=== PATIENT | female | born 1970 | race Caucasian/White ===

== ENCOUNTER 2017-06-24 13:38 | Emergency (ER) | payer SELFPAY ==
[~2017-06-24] VITALS: Ht 162.6 cm; Wt 107.7 kg
[~2017-06-24 13:38] MED LIST: NAPROSYN500 MG PO; NO
[2017-06-24 15:34] LABS: HEMATOCRIT 45.5 % (37.0-47.0); HEMOGLOBIN 15.5 g/dl (12.0-16.0); IMMATURE GRANULOCYTES 0.3 % (0.0-1.0); MEAN CELL VOLUME 85.7 fL CALC (80.0-100.0); MEAN CORPUSCULAR HGB 29.2 pG CALC (26.0-32.0); MEAN CORPUSCULAR HGB CONC 34.1 g/L CALC (32.0-36.0); NEUT# 6.54 thou/uL (2.00-7.15); RED BLOOD COUNT 5.31 mill/uL (4.20-5.60); RED CELL DISTRI WIDTH 11.9 % (11.5-15.5)
[2017-06-24] MEDS ORDERED: METFORMIN500 MG PO (15:41)
[2017-06-24] MEDS ORDERED: METFORMIN HCL1000 MG PO (15:44)
[2017-06-24] MEDS ORDERED: INSULIN (15:45)
[2017-06-24] MEDS ORDERED: BACTRIM DS1 TAB PO ×2 (15:47→16:14)
[2017-06-24 15:53] LABS: ALBUMIN 4.4 g/dL (3.2-5.0); ALKALINE PHOSPHATASE 123 u/l (38-126); ANION GAP 20 (6-22 (CALC)); BILIRUBIN, TOTAL 1.6 mg/dL (0.0-1.4); BUN 15 mg/dL (7-17); BUN/CREATININE RATIO 24 (12-20 (CALC)); CARBON DIOXIDE 26 mmol/l (22-30); CHLORIDE 98 mmol/l (95-108); CREATININE 0.6 mg/dL (0.5-1.0); GFR > 60 ML/MIN (>=60 (CALC)); GFR FOR AFR.AMER. > 60 ML/MIN (>=60 (CALC)); POTASSIUM 4.8 mmol/l (3.5-5.1); SGOT/AST 21 u/l (14-36); SGPT/ALT 31 u/l (9-52); SODIUM 139 mmol/l (137-146); TOTAL PROTEIN 7.8 g/dL (6.3-8.2)
[2017-06-24] MEDS ORDERED: ULTRAM50 M1 PO (16:14)
[2017-06-24] MEDS ORDERED: CEPHALEXIN500 MG PO (16:14)
[2017-06-24 17:10] VITALS: BP 135/89
== END 2017-06-24 17:10 | disposition home or self-care (01) | DRG 603 ==
LOC: ED 13:38
PROVIDERS: Emergency Medicine
DX: L03.116 Cellulitis of left lower limb (principal); S91.332A Puncture wound without foreign body, left foot, initial encounter; E11.9 Type 2 diabetes mellitus without complications; B96.89 Other specified bacterial agents as the cause of diseases classified elsewhere; W22.8XXA Striking against or struck by other objects, initial encounter; Y92.009 Unspecified place in unspecified non-institutional (private) residence as the place of occurrence of the external cause

== ENCOUNTER 2018-01-22 12:40 | Emergency (ER) | payer SELFPAY ==
[~2018-01-22] VITALS: Ht 162.6 cm; Wt 109.1 kg
[~2018-01-22 12:40] MED LIST changes: +BACTRIM DS1 TAB PO; +CEPHALEXIN500 MG PO; +INSULIN; +METFORMIN HCL1000 MG PO; +METFORMIN500 MG PO; +ULTRAM50 M1 PO
[2018-01-22 13:33] LABS: HEMATOCRIT 42.9 % (37.0-47.0); HEMOGLOBIN 14.7 g/dl (12.0-16.0); IMMATURE GRANULOCYTES 0.6 % (0.0-5.0); MEAN CELL VOLUME 86.8 fL CALC (80.0-100.0); MEAN CORPUSCULAR HGB 29.8 pG CALC (26.0-32.0); MEAN CORPUSCULAR HGB CONC 34.3 g/L CALC (32.0-36.0); NEUT# 10.86 thou/uL (2.00-7.15); RED BLOOD COUNT 4.94 mill/uL (4.20-5.60); RED CELL DISTRI WIDTH 12.8 % (11.5-15.5)
[2018-01-22 13:38] LABS: ALBUMIN 3.9 g/dL (3.2-5.0); ALKALINE PHOSPHATASE 110 u/l (38-126); ANION GAP 16 (6-22 (CALC)); BILIRUBIN, TOTAL 1.4 mg/dL (0.0-1.4); BUN 13 mg/dL (7-17); BUN/CREATININE RATIO 22 (12-20 (CALC)); CARBON DIOXIDE 27 mmol/l (22-30); CHLORIDE 95 mmol/l (95-108); CREATININE 0.6 mg/dL (0.5-1.0); GFR > 60 ML/MIN (>=60 (CALC)); GFR FOR AFR.AMER. > 60 ML/MIN (>=60 (CALC)); POTASSIUM 4.3 mmol/l (3.5-5.1); SGOT/AST 19 u/l (14-36); SODIUM 134 mmol/l (137-146); TOTAL PROTEIN 7.2 g/dL (6.3-8.2)
[2018-01-22] MEDS ORDERED: KEFLEX500 M1 PO (14:20)
[2018-01-22 15:30] VITALS: BP 142/80
== END 2018-01-22 15:29 | disposition left against medical advice (07) | DRG 300 ==
LOC: ED 12:40 → ED-I 13:03 → ED 15:29
PROVIDERS: Emergency Medicine
DX: E11.52 Type 2 diabetes mellitus with diabetic peripheral angiopathy with gangrene (principal); I96 Gangrene, not elsewhere classified; E11.65 Type 2 diabetes mellitus with hyperglycemia; Z91.19 Patient's noncompliance with other medical treatment and regimen

== ENCOUNTER 2018-01-26 08:36 | Emergency (ER) | payer SELFPAY ==
[~2018-01-26] VITALS: Ht 162.6 cm; Wt 104.5 kg
[~2018-01-26 08:36] MED LIST changes: +KEFLEX500 M1 PO
[2018-01-26 09:18] LABS: HEMOGLOBIN 13.8 g/dl (12.0-16.0); IMMATURE GRANULOCYTES 0.5 % (0.0-5.0); MEAN CELL VOLUME 86.3 fL CALC (80.0-100.0); MEAN CORPUSCULAR HGB 29.1 pG CALC (26.0-32.0); MEAN CORPUSCULAR HGB CONC 33.7 g/L CALC (32.0-36.0); NEUT# 7.49 thou/uL (2.00-7.15); RED BLOOD COUNT 4.75 mill/uL (4.20-5.60); RED CELL DISTRI WIDTH 12.2 % (11.5-15.5)
[2018-01-26 09:48] LABS: ANION GAP 15 (6-22 (CALC)); BUN 12 mg/dL (7-17); BUN/CREATININE RATIO 25 (12-20 (CALC)); CARBON DIOXIDE 26 mmol/l (22-30); CHLORIDE 103 mmol/l (95-108); CREATININE 0.5 mg/dL (0.5-1.0); GFR > 60 ML/MIN (>=60 (CALC)); GFR FOR AFR.AMER. > 60 ML/MIN (>=60 (CALC)); POTASSIUM 4.1 mmol/l (3.5-5.1); SODIUM 139 mmol/l (137-146)
[2018-01-26] MEDS ORDERED: NOVOLOG MIX100 U/ML SC (10:02)
[2018-01-26 13:10] VITALS: BP 143/77
== END 2018-01-26 13:11 | DRG 300 ==
LOC: ED 08:36
PROVIDERS: Family Medicine
DX: E11.52 Type 2 diabetes mellitus with diabetic peripheral angiopathy with gangrene (principal); I96 Gangrene, not elsewhere classified; Z79.4 Long term (current) use of insulin

== ENCOUNTER 2018-03-03 14:16 | Emergency (ER) | payer SELFPAY ==
[~2018-03-03] VITALS: Ht 162.6 cm; Wt 113.6 kg
[~2018-03-03 14:16] MED LIST changes: +NOVOLOG MIX100 U/ML SC
[2018-03-03 15:50] VITALS: BP 158/92
== END 2018-03-03 15:50 | disposition home or self-care (01) | DRG 951 ==
LOC: ED 14:16
DX: Z48.01 Encounter for change or removal of surgical wound dressing (principal); Z89.421 Acquired absence of other right toe(s); E11.9 Type 2 diabetes mellitus without complications; Z79.4 Long term (current) use of insulin

== ENCOUNTER 2019-03-16 08:46 | Emergency (ER) | payer SELFPAY ==
[~2019-03-16] VITALS: Ht 162.6 cm; Wt 110.0 kg
[2019-03-16] MEDS ORDERED: BP MED (09:08)
[2019-03-16] MEDS ORDERED: DIABETIC MED (09:09)
[2019-03-16 09:36] LABS: HEMOGLOBIN 15.3 g/dl (12.0-16.0); IMMATURE GRANULOCYTES 0.3 % (0.0-5.0); MEAN CELL VOLUME 84.7 fL CALC (80.0-100.0); MEAN CORPUSCULAR HGB 28.8 pG CALC (26.0-32.0); NEUT# 6.04 thou/uL (2.00-7.15); RED BLOOD COUNT 5.31 mill/uL (4.20-5.60); RED CELL DISTRI WIDTH 12.2 % (11.5-15.5)
[2019-03-16 09:56] LABS: ALBUMIN 4.3 g/dL (3.2-5.0); ALKALINE PHOSPHATASE 105 u/l (38-126); ANION GAP 17 (6-22 (CALC)); BILIRUBIN, TOTAL 1.1 mg/dL (0.0-1.4); BUN 17 mg/dL (7-17); BUN/CREATININE RATIO 32 (12-20 (CALC)); CARBON DIOXIDE 25 mmol/l (22-30); CHLORIDE 98 mmol/l (95-108); CREATININE 0.5 mg/dL (0.5-1.0); GFR > 60 ML/MIN (>=60 (CALC)); GFR FOR AFR.AMER. > 60 ML/MIN (>=60 (CALC)); POTASSIUM 4.6 mmol/l (3.5-5.1); SGOT/AST 23 u/l (14-36); SODIUM 135 mmol/l (137-146); TOTAL PROTEIN 7.7 g/dL (6.3-8.2)
[2019-03-16] MEDS ORDERED: BACTRIM DS1 TAB PO (10:35)
[2019-03-16 10:49] VITALS: BP 160/90
== END 2019-03-16 10:49 | disposition home or self-care (01) | DRG 607 ==
LOC: ED 08:46
PROVIDERS: Emergency Medicine
DX: S90.821A Blister (nonthermal), right foot, initial encounter (principal); L08.9 Local infection of the skin and subcutaneous tissue, unspecified; E11.9 Type 2 diabetes mellitus without complications; Z79.4 Long term (current) use of insulin

== ENCOUNTER 2019-06-30 21:15 | Inpatient (IN) | payer SELFPAY ==
[~2019-06-30] VITALS: Ht 162.6 cm; Wt 105.8 kg
[~2019-06-30 21:15] MED LIST changes: +BP MED; +DIABETIC MED
--- NOTE | 2019-06-30 21:15 | NUR ---
BY WC TO ROOM
--- NOTE | 2019-06-30 22:00 | NUR ---
NO SIGNIFICANT CHANGE IN EXAM
[2019-06-30 22:18] LABS: HEMATOCRIT 40.8 % (37.0-47.0); HEMOGLOBIN 13.7 g/dl (12.0-16.0); IMMATURE GRANULOCYTES 0.4 % (0.0-5.0); MEAN CELL VOLUME 84.1 fL CALC (80.0-100.0); MEAN CORPUSCULAR HGB 28.2 pG CALC (26.0-32.0); MEAN CORPUSCULAR HGB CONC 33.6 g/dL CAL (32.0-36.0); NEUT# 8.29 thou/uL (2.00-7.15); RED BLOOD COUNT 4.85 mill/uL (4.20-5.60)
[2019-06-30 22:38] LABS: ACT PARTIAL THROMBO TIME 27.1 SECONDS (20.0-32.5); ALKALINE PHOSPHATASE 140 u/l (38-126); ANION GAP 20 (6-22 (CALC)); BUN 19 mg/dL (7-17); BUN/CREATININE RATIO 26 (12-20 (CALC)); CARBON DIOXIDE 22 mmol/l (22-30); CHLORIDE 93 mmol/l (95-108); CREATININE 0.7 mg/dL (0.5-1.0); ETHYL ALCOHOL 0 mg/dl (0-30); GFR > 60 ML/MIN (>=60 (CALC)); GFR FOR AFR.AMER. > 60 ML/MIN (>=60 (CALC)); INTERNATIONAL NORMALIZED RATIO 1.1 RATIO (0.7-1.3); LIPASE 39 u/l (23-300); MAGNESIUM 1.7 mg/dL (1.6-2.3); PROTHROMBIN TIME 11.1 SECONDS (9.0-12.5); SGOT/AST 28 u/l (14-36); SODIUM 131 mmol/l (137-146); TOTAL PROTEIN 7.6 g/dL (6.3-8.2)
[2019-06-30 22:49] LABS: AMYLASE < 30 u/l (30-110); BILIRUBIN, TOTAL 1.6 mg/dL (0.0-1.4)
--- NOTE | 2019-06-30 23:00 | NUR ---
STATES FEELING BETTER. I
[2019-07-01] VITALS (7 sets, daily range): BP systolic 96–142; BP diastolic 45–87
--- NOTE | 2019-07-01 | NUR ---
[facility]. AWAITING DISPO.
--- NOTE | 2019-07-01 00:35 | NUR ---
Admission Note Report Given to: GUI MELENDEZ Transported by: Wheelchair X Stretcher Transported with: X Nurse Transporter X Patent IV X O2 X Flat Sorting Machine Clerk Location: ICU X MS2 FACE MASK IN PLACE ON PT.
[2019-07-01 00:37] LABS: URINE BLOOD DIPSTICK MODERATE (NEGATIVE); URINE COLOR YELLOW; URINE GLUCOSE - DIPSTICK >=1000 mg/dL (NEGATIVE); URINE KETONE 15 mg/dL (NEGATIVE); URINE LEUK ESTERASE TRACE (NEGATIVE); URINE PROTEIN - DIPSTICK TRACE mg/dL (NEG-TRACE); URINE SPECIFIC GRAVITY 1.015; URINE UROBILINOGEN - DIPSTICK 0.2 E.U./dL (0.2)
[2019-07-01 00:39] LABS: URINE BILIRUBIN - DIPSTICK NEGATIVE (NEGATIVE); URINE NITRITE - DIPSTICK POSITIVE (Negative)
[2019-07-01 00:42] LABS: BARBITURATES NEGATIVE (NEGATIVE); COCAINE NEGATIVE (NEGATIVE); METHADONE NEGATIVE (NEGATIVE); OXCYCODONE NEGATIVE (NEGATIVE); TETRAHYDROCANNABIONOL NEGATIVE (NEGATIVE); TRICYLIC ANTIDEPRESSANTS NEGATIVE (NEGATIVE)
[2019-07-01 00:44] LABS: URINE BACTERIA MANY hpf; URINE EPITHELIAL CELLS MANY EPI/hpf (0-FEW)
--- NOTE | 2019-07-01 01:02 | NUR ---
PT ARRIVED TO THE MED SURG UNIT VIA STRETCHER ACCOMPANIED BY ED NURSE. PT APPEARS WEAK, BUT IN STABLE CONDITION. SHE DID SELF AMBULATE TO STANDING SCALE AND BED. PT ORIENTED TO ROOM,CALL SYSTEM, LIGHTS, BED AND TV. PT ASKING ABOUT PHONE BUILDING AND CONSTRUCTION MANAGER, SHE THINKS IT WAS LEFT IN ED, WILL CALL ED TO CHECK. PT IS ALSO ASKING FOR FOOD, BUT REPORTS THAT SHE HAS BEEN VOMITING X3 DAYS AND HAD LOOSE STOOL THIS DAY. TALKED W/PT AND PROVIDED CHICKEN BROTH AND ICE/WATER.
--- NOTE | 2019-07-01 01:30 | NUR ---
PT HAS IVF RUNNING TO 20RAC AND IV ANTIBIOTIC THERAPY ADMINISTERED AT THIS TIME. ASSESSMENT COMPLETED. NO S/O DISTRESS. PT ANSWERS QUESTIONS APPROPRIATELY, LOCX4, DENIES PAIN OR NAUSEA AT THIS TIME. CALL LIGHT IS IN HAND, TV ON AND PT IN LOW FOWLERS IN BED.
--- NOTE | 2019-07-01 02:41 | NUR ---
IVF BOLUS COMPLETED AT THIS TIME AND IVF RUNNING @125, VANCO ANTIBIOTIC STILL ADMINISTERING AT THIS TIME ALSO. SITE APPEARS HEALTHY.
--- NOTE | 2019-07-01 06:37 | NUR ---
PT ASSISTED TO RESTROOM AND BACK TO BED.
--- NOTE | 2019-07-01 07:55 | NUR ---
PT SITTING IN BED. A&O X3. NO DISTRESS NOTED. PT DENIES ANY NAUSEA AT THIS TIME. PT CURRENTLY AFEBRILE WITH NO SOB OR COUGH NOTED. NO OTHER NEEDS AT THIS TIME. ASSESSMENT COMPLETED. DISCUSSED POC. CALL LIGHT IN REACH. CONTINUE TO MONITOR.
--- NOTE | 2019-07-01 10:09 | NUR ---
PT C/O OF NAUSEA. ZOFRAN GIVEN. CONTINUE TO MONITOR
[2019-07-01 10:22] LABS: ANION GAP 13 (6-22 (CALC)); BUN 17 mg/dL (7-17); BUN/CREATININE RATIO 31 (12-20 (CALC)); CARBON DIOXIDE 23 mmol/l (22-30); CHLORIDE 102 mmol/l (95-108); CREATININE 0.6 mg/dL (0.5-1.0); GFR > 60 ML/MIN (>=60 (CALC)); GFR FOR AFR.AMER. > 60 ML/MIN (>=60 (CALC)); MAGNESIUM 1.9 mg/dL (1.6-2.3); POTASSIUM 3.9 mmol/l (3.5-5.1); SODIUM 135 mmol/l (137-146)
[2019-07-01 10:37] LABS: HEMATOCRIT 40.8 % (37.0-47.0); HEMOGLOBIN 13.1 g/dl (12.0-16.0); IMMATURE GRANULOCYTES 0.4 % (0.0-5.0); MEAN CELL VOLUME 87.4 fL CALC (80.0-100.0); MEAN CORPUSCULAR HGB 28.1 pG CALC (26.0-32.0); MEAN CORPUSCULAR HGB CONC 32.1 g/dL CAL (32.0-36.0); NEUT# 8.3 thou/uL (2.00-7.15); RED BLOOD COUNT 4.67 mill/uL (4.20-5.60); RED CELL DISTRI WIDTH 12.2 % (11.5-15.5)
--- NOTE | 2019-07-01 12:45 | NUR ---
PT HAD ONE EPISODE OF VOMITING, STATES THAT IT WAS DUE TO THE FOOD SHE WAS TRYING TO EAT. JELLO AND APPLESAUCE GIVEN. CONTINUE TO MONITOR.
--- NOTE | 2019-07-01 14:29 | NUR ---
S: BERNA FISHER is a 49 F who presents with cellulitis of right food. She has a history of diabetes. All medications in patient's chart were reviewed. O: VS: BP 96/61 mmHg, P 89 bpm, RR 22 breaths/min, T 98.3 F W 105.8 kg, HT 64 in, Scr 0.6 mg/dl, CrCl= 185.3 A: Blood culture is pending. P: Patient is on azithromycin 500mg IV q24h and ceftriaxone 1g IV q24h. Vancomycin ordered for pharmacy to dose. Start Vancomycin 1250mg IV Q8H. Vancomycin trough is drawn before the 4th dose on 07/02/19 @ 1130. Vancomycin goal trough is between 10-15 mcg/ml. Pharmacy will follow and or advise on antibiotics use as needed.
--- NOTE | 2019-07-01 18:10 | NUR ---
PT ABLE TO TOLERATE SUPPER. NO NAUSEA OR VOMITING AT THIS TIME
--- NOTE | 2019-07-01 19:10 | NUR ---
PT IN BED, ASSISTED HER TO BSC AND BACK TO BED. DENIES NAUSEA AT THIS TIME. CALL LIGHT AT SIDE.
--- NOTE | 2019-07-01 22:47 | NUR ---
PT MEDICATED FOR HEADACHE. ASSISTED PT TO BSC AND BACK TO BED. DENIES ANY OTHER NEEDS AT THIS TIME.
--- NOTE | 2019-07-02 01:35 | NUR ---
PT APPEARS TO BE SLEEPING AT THIS TIME. NO S/O DISTRESS NOTED. CALL LIGHT AT SIDE.
[2019-07-02 03:48] VITALS: BP 140/87
--- NOTE | 2019-07-02 04:17 | NUR ---
IV ANTIBIOTIC THERAPY ADMINISTERED AT THIS TIME. PT DENIES ANY NEEDS.
[2019-07-02 05:49] LABS: HEMATOCRIT 39.8 % (37.0-47.0); HEMOGLOBIN 12.9 g/dl (12.0-16.0); IMMATURE GRANULOCYTES 0.4 % (0.0-5.0); MEAN CORPUSCULAR HGB 27.9 pG CALC (26.0-32.0); MEAN CORPUSCULAR HGB CONC 32.4 g/dL CAL (32.0-36.0); NEUT# 6.36 thou/uL (2.00-7.15); RED BLOOD COUNT 4.63 mill/uL (4.20-5.60); RED CELL DISTRI WIDTH 12.2 % (11.5-15.5)
[2019-07-02 06:11] LABS: ANION GAP 13 (6-22 (CALC)); BUN 10 mg/dL (7-17); BUN/CREATININE RATIO 23 (12-20 (CALC)); CARBON DIOXIDE 24 mmol/l (22-30); CHLORIDE 103 mmol/l (95-108); CREATININE 0.4 mg/dL (0.5-1.0); GFR > 60 ML/MIN (>=60 (CALC)); GFR FOR AFR.AMER. > 60 ML/MIN (>=60 (CALC)); MAGNESIUM 1.9 mg/dL (1.6-2.3); POTASSIUM 3.6 mmol/l (3.5-5.1); SODIUM 135 mmol/l (137-146)
[2019-07-02 07:37] VITALS: BP 156/84
[2019-07-02 10:29] VITALS: BP 105/68
--- NOTE | 2019-07-02 12:10 | NUR ---
PT DENIES ANY NAUSEA AND VOMITING AND TOLERATED LUNCH WELL
--- NOTE | 2019-07-02 12:39 | NUR ---
DRESSING CHANGE COMPLETED. PT TOLERATED WELL. SCANT AMOUNT OF PURULENT DRAINAGE NOTED.
--- NOTE | 2019-07-02 13:11 | NUR ---
LAB AT BEDSIDE PERFORMING VENIPUNCTURE X2. PER BUSINESS CENTER MANAGER, THE FIRST SAMPLE WAS NOT ENOUGH TO COMPLETE A VANCOTROUGH TEST.
--- NOTE | 2019-07-02 14:01 | NUR ---
TOÑITO D/C BY PHYSICIAN, ROBERT BELLO DO NOT GIVE 12PM DOSE
[2019-07-02 15:09] VITALS: BP 112/74
[2019-07-02 20:25] VITALS: BP 154/83
--- NOTE | 2019-07-02 20:38 | NUR ---
PT MEDICATED ORDERS PROVIDE. ACCU-CHECK 292/3UN OF NOVOLOG ADMINISTERED AT THIS TIME. PT AMBULATED TO BSC W/STANDBY ASSISTANCE W/CALL LIGHT W/IN REACH AND INSTRUCTED TO CALL. WHEN I RETURNED W/MEDICATIONS PT HAD SELF AMBULATED BACK TO THE BED.
--- NOTE | 2019-07-02 22:35 | NUR ---
PT CALLED TO REQUEST ORANGE JUICE W/ICE. I HAVE EDUCATED PT ON CONTROLLING HER SUGARS, PT IS STILL ASKING FOR ORANGE JUICE OVER ICE/PROVIDED. NO S/O DISTRESS NOTED. CALL LIGHT AT SIDE.
[2019-07-03 00:01] VITALS: BP 150/83
[2019-07-03 03:40] VITALS: BP 127/72
--- NOTE | 2019-07-03 03:40 | NUR ---
PT APPEARS TO BE SLEEPING, AIDE WAS JUST IN OBTAINING V/S. NO S/O DISTRESS NOTED. CALL LIGHT AT SIDE.
[2019-07-03 07:27] VITALS: BP 164/87
--- NOTE | 2019-07-03 07:27 | NUR ---
PT RESTING IN BED, NO SIGNS OF DISTRESS NOTED, RESP EVEN AND UNLABORED. PT ALERT AND ORIENTED X3, NOTED DRESSING TO R FOOT CDI, DISCUSSED POC, ASSESSMENT COMPLETED, CALL LIGHT IN REACH,CONTINUE TO MONITOR.
[2019-07-03] MEDS ORDERED: KEFLEX500 M1 PO (10:07)
--- NOTE | 2019-07-03 10:09 | NUR ---
PT SITTING IN RECLINER STATES SHE IS READY TO GO HOME, CALL LIGHT IN REACH,CONTINUE TO MONITOR.
--- NOTE | 2019-07-03 11:45 | NUR ---
PT SITTING IN RECLINER, DISCUSSED DISCHARGE INSTRUCTIONS, DRESSING TO R FOOT REMOVED, NO S/S OF INFECTION NOTED, SITE APPEARS CLEAN TISSUE PINK; NEW DRESSING APPLIED. PT STATES SHE WANTS TO EAT BEFORE SHE LEAVES. IV SITE REMOVED, CATHETER INTACT, CALL LIGHT IN REACH, CONTINUE TO MONITOR.
--- NOTE | 2019-07-03 12:16 | NUR ---
Discharge instructions given. Patient verbalizes understanding of same. Discharged in stable condition via Wheelchair to Home with family. All belongings sent with pt.
== END 2019-07-03 12:15 | disposition home or self-care (01) | DRG 638 ==
LOC: ED 21:15 → ED-I 23:47 → ED 07-01 00:13 → MS2 07-01 00:14
PROVIDERS: Nurse Practitioner Family; ADMIT Internal Medicine; ATTEND Internal Medicine
DX: E11.65 Type 2 diabetes mellitus with hyperglycemia (principal); N39.0 Urinary tract infection, site not specified; L03.115 Cellulitis of right lower limb; L97.419 Non-pressure chronic ulcer of right heel and midfoot with unspecified severity; E11.610 Type 2 diabetes mellitus with diabetic neuropathic arthropathy; R09.02 Hypoxemia; E11.621 Type 2 diabetes mellitus with foot ulcer; B96.20 Unspecified Escherichia coli [E. coli] as the cause of diseases classified elsewhere; B95.61 Methicillin susceptible Staphylococcus aureus infection as the cause of diseases classified elsewhere; Z23 Encounter for immunization; Z79.4 Long term (current) use of insulin; Z89.421 Acquired absence of other right toe(s); Z55.0 Illiteracy and low-level literacy; Z91.19 Patient's noncompliance with other medical treatment and regimen
CPT/HCPCS: J0131; J3370

== ENCOUNTER 2019-08-24 | Emergency (ER) | payer SELFPAY ==
[2019-08-24 18:10] LABS: HEMATOCRIT 40.6 % (37.0-47.0); HEMOGLOBIN 13.8 g/dl (12.0-16.0); IMMATURE GRANULOCYTES 0.5 % (0.0-5.0); MEAN CELL VOLUME 81.7 fL CALC (80.0-100.0); MEAN CORPUSCULAR HGB 27.8 pG CALC (26.0-32.0); NEUT# 9.02 thou/uL (2.00-7.15); RED BLOOD COUNT 4.97 mill/uL (4.20-5.60)
[2019-08-24 18:36] LABS: ALKALINE PHOSPHATASE 112 u/l (38-126); ANION GAP 14 (6-22 (CALC)); BILIRUBIN, TOTAL 1.6 mg/dL (0.0-1.4); BUN 11 mg/dL (7-17); BUN/CREATININE RATIO 22 (12-20 (CALC)); CARBON DIOXIDE 26 mmol/l (22-30); CHLORIDE 96 mmol/l (95-108); CREATININE 0.5 mg/dL (0.5-1.0); GFR > 60 ML/MIN (>=60 (CALC)); GFR FOR AFR.AMER. > 60 ML/MIN (>=60 (CALC)); LIPASE 40 u/l (23-300); SGOT/AST 22 u/l (14-36); SODIUM 132 mmol/l (137-146); TOTAL PROTEIN 7.2 g/dL (6.3-8.2)
[2019-08-24] MEDS ORDERED: ZOFRAN4 MG/TAB PO (19:09)
[2019-08-24 19:10] LABS: URINE BILIRUBIN - DIPSTICK NEGATIVE (NEGATIVE); URINE BLOOD DIPSTICK MODERATE (NEGATIVE); URINE COLOR YELLOW; URINE GLUCOSE - DIPSTICK >=1000 mg/dL (NEGATIVE); URINE KETONE 15 mg/dL (NEGATIVE); URINE LEUK ESTERASE NEGATIVE (NEGATIVE); URINE PH 5.5 (4.5-8.0); URINE PROTEIN - DIPSTICK TRACE mg/dL (NEG-TRACE); URINE UROBILINOGEN - DIPSTICK 0.2 E.U./dL (0.2)
[2019-08-24 19:15] LABS: URINE NITRITE - DIPSTICK POSITIVE (Negative)
[2019-08-24 19:26] LABS: URINE BACTERIA MODERATE hpf; URINE RBC 0-2 RBC/hpf (0-5); URINE SQUAMOUS EPITHELIAL CELL FEW EPI/hpf (0-FEW)
== END 2019-08-24 19:20 | disposition left against medical advice (07) | DRG 639 ==
DX: E11.65 Type 2 diabetes mellitus with hyperglycemia (principal); T50.906A Underdosing of unspecified drugs, medicaments and biological substances, initial encounter; Z91.128 Patient's intentional underdosing of medication regimen for other reason; Z79.4 Long term (current) use of insulin; Z91.19 Patient's noncompliance with other medical treatment and regimen

== ENCOUNTER 2019-08-30 17:00 | Emergency (ER) | payer SELFPAY ==
[~2019-08-30 17:00] MED LIST changes: +ZOFRAN4 MG/TAB PO
[2019-08-30 18:01] LABS: HEMATOCRIT 42.5 % (37.0-47.0); HEMOGLOBIN 14.3 g/dl (12.0-16.0); IMMATURE GRANULOCYTES 0.6 % (0.0-5.0); MEAN CELL VOLUME 81.6 fL CALC (80.0-100.0); MEAN CORPUSCULAR HGB 27.4 pG CALC (26.0-32.0); MEAN CORPUSCULAR HGB CONC 33.6 g/dL CAL (32.0-36.0); NEUT# 10.96 thou/uL (2.00-7.15); RED BLOOD COUNT 5.21 mill/uL (4.20-5.60); RED CELL DISTRI WIDTH 12.9 % (11.5-15.5)
[2019-08-30 18:11] LABS: URINE BILIRUBIN - DIPSTICK NEGATIVE (NEGATIVE); URINE BLOOD DIPSTICK SMALL (NEGATIVE); URINE COLOR YELLOW; URINE GLUCOSE - DIPSTICK NEGATIVE (NEGATIVE); URINE KETONE NEGATIVE (NEGATIVE); URINE LEUK ESTERASE NEGATIVE (NEGATIVE); URINE NITRITE - DIPSTICK NEGATIVE (Negative); URINE PROTEIN - DIPSTICK NEGATIVE (NEG-TRACE); URINE SPECIFIC GRAVITY 1.025
[2019-08-30 18:19] LABS: ALBUMIN 4.3 g/dL (3.2-5.0); ALKALINE PHOSPHATASE 127 u/l (38-126); ANION GAP 13 (6-22 (CALC)); BILIRUBIN, TOTAL 1.2 mg/dL (0.0-1.4); BUN 9 mg/dL (7-17); BUN/CREATININE RATIO 17 (12-20 (CALC)); CARBON DIOXIDE 30 mmol/l (22-30); CHLORIDE 93 mmol/l (95-108); CREATININE 0.6 mg/dL (0.5-1.0); GFR > 60 ML/MIN (>=60 (CALC)); GFR FOR AFR.AMER. > 60 ML/MIN (>=60 (CALC)); LIPASE 128 u/l (23-300); POTASSIUM 4.2 mmol/l (3.5-5.1); SGOT/AST 24 u/l (14-36); SODIUM 131 mmol/l (137-146)
[2019-08-30 18:24] LABS: URINE WBC 0-2 WBC/hpf (0-5)
[2019-08-30] MEDS ORDERED: ONDANSETRON4 MG PO ×2 (18:44)
[2019-08-30 19:12] VITALS: BP 141/80
== END 2019-08-30 19:23 | disposition home or self-care (01) | DRG 392 ==
LOC: ED 17:00
PROVIDERS: Family Medicine
DX: R11.2 Nausea with vomiting, unspecified (principal); E11.9 Type 2 diabetes mellitus without complications; Z79.4 Long term (current) use of insulin

== ENCOUNTER 2019-08-31 19:16 | Emergency (ER) | payer SELFPAY ==
[~2019-08-31 19:16] MED LIST changes: +ONDANSETRON4 MG PO
[2019-08-31 20:16] LABS: URINE BILIRUBIN - DIPSTICK NEGATIVE (NEGATIVE); URINE BLOOD DIPSTICK MODERATE (NEGATIVE); URINE COLOR YELLOW; URINE GLUCOSE - DIPSTICK >=1000 mg/dL (NEGATIVE); URINE KETONE 40 mg/dL (NEGATIVE); URINE LEUK ESTERASE NEGATIVE (NEGATIVE); URINE PROTEIN - DIPSTICK 30 mg/dL (NEG-TRACE); URINE UROBILINOGEN - DIPSTICK 0.2 E.U./dL (0.2)
[2019-08-31 20:18] LABS: URINE NITRITE - DIPSTICK POSITIVE (Negative)
[2019-08-31 20:26] LABS: URINE BACTERIA MANY hpf; URINE SQUAMOUS EPITHELIAL CELL FEW EPI/hpf (0-FEW)
[2019-08-31 20:34] LABS: HEMATOCRIT 40.2 % (37.0-47.0); HEMOGLOBIN 13.2 g/dl (12.0-16.0); MEAN CELL VOLUME 83.9 fL CALC (80.0-100.0); MEAN CORPUSCULAR HGB 27.6 pG CALC (26.0-32.0); MEAN CORPUSCULAR HGB CONC 32.8 g/dL CAL (32.0-36.0); NEUT# 14.38 thou/uL (2.00-7.15); RED BLOOD COUNT 4.79 mill/uL (4.20-5.60)
[2019-08-31 20:54] LABS: ALBUMIN 4.1 g/dL (3.2-5.0); ALKALINE PHOSPHATASE 116 u/l (38-126); AMYLASE 32 u/l (30-110); ANION GAP 15 (6-22 (CALC)); BUN 12 mg/dL (7-17); BUN/CREATININE RATIO 21 (12-20 (CALC)); CARBON DIOXIDE 29 mmol/l (22-30); CHLORIDE 93 mmol/l (95-108); CREATININE 0.6 mg/dL (0.5-1.0); GFR > 60 ML/MIN (>=60 (CALC)); GFR FOR AFR.AMER. > 60 ML/MIN (>=60 (CALC)); LIPASE 39 u/l (23-300); POTASSIUM 4.2 mmol/l (3.5-5.1); SGOT/AST 18 u/l (14-36); SODIUM 133 mmol/l (137-146); TOTAL PROTEIN 7.9 g/dL (6.3-8.2)
[2019-08-31 20:55] LABS: BILIRUBIN, TOTAL 1.7 mg/dL (0.0-1.4)
[2019-08-31 21:05] LABS: MYOGLOBIN 16 ng/mL (0 - 62)
[2019-09-01] MEDS ORDERED: ONDANSETRON4 MG PO ×2 (00:58)
[2019-09-01] MEDS ORDERED: KEFLEX500 M1 PO ×2 (00:58)
[2019-09-01 01:15] VITALS: BP 105/52
== END 2019-09-01 01:25 | disposition home or self-care (01) | DRG 690 ==
LOC: ED 19:16
PROVIDERS: Emergency Medicine
DX: N39.0 Urinary tract infection, site not specified (principal); E11.65 Type 2 diabetes mellitus with hyperglycemia; I10 Essential (primary) hypertension; B96.20 Unspecified Escherichia coli [E. coli] as the cause of diseases classified elsewhere; Z79.4 Long term (current) use of insulin

== ENCOUNTER 2020-01-11 08:51 | Inpatient (IN) | payer SELFPAY ==
[~2020-01-11] VITALS: Ht 162.6 cm; Wt 122.0 kg
--- NOTE | 2020-01-11 08:59 | NUR ---
PT TO ROOM VIA WC WITH C/O LT RIB PAIN AND LT GREAT TOE PAIN
[2020-01-11 09:35] LABS: HEMATOCRIT 38.7 % (37.0-47.0); HEMOGLOBIN 12.6 g/dl (12.0-16.0); IMMATURE GRANULOCYTES 0.8 % (0.0-5.0); MEAN CELL VOLUME 84.5 fL CALC (80.0-100.0); MEAN CORPUSCULAR HGB 27.5 pG CALC (26.0-32.0); MEAN CORPUSCULAR HGB CONC 32.6 g/dL CAL (32.0-36.0); NEUT# 14.89 thou/uL (2.00-7.15); RED BLOOD COUNT 4.58 mill/uL (4.20-5.60); RED CELL DISTRI WIDTH 12.3 % (11.5-15.5)
[2020-01-11 10:04] LABS: ALBUMIN 3.7 g/dL (3.2-5.0); ALKALINE PHOSPHATASE 134 u/l (38-126); ANION GAP 22 (6-22 (CALC)); BILIRUBIN, TOTAL 1.9 mg/dL (0.0-1.4); BUN 11 mg/dL (7-17); BUN/CREATININE RATIO 17 (12-20 (CALC)); CHLORIDE 92 mmol/l (95-108); CREATININE 0.7 mg/dL (0.5-1.0); GFR > 60 ML/MIN (>=60 (CALC)); GFR FOR AFR.AMER. > 60 ML/MIN (>=60 (CALC)); POTASSIUM 3.7 mmol/l (3.5-5.1); SGOT/AST 20 u/l (14-36); SODIUM 133 mmol/l (137-146)
[2020-01-11 10:05] LABS: CARBON DIOXIDE 23 mmol/l (22-30)
[2020-01-11 10:06] LABS: ACT PARTIAL THROMBO TIME 23.5 SECONDS (20.0-32.5); INTERNATIONAL NORMALIZED RATIO 1.1 RATIO (0.7-1.3); PROTHROMBIN TIME 11.3 SECONDS (9.0-12.5)
--- NOTE | 2020-01-11 10:10 | NUR ---
MEDICATED WITH TORADOL 30MG IVP FOR C/O 10/10 LEFT RIBS PAIN. REPOSITIONED PT IN BED, PROVIDED WARM BLANKET.
--- NOTE | 2020-01-11 10:10 | NUR ---
INITIATED SECOND IV FOR FLUID RESUSCITATION. LACTIC ACID REDRAWN LAB REPORTS SPECIMEN HEMOLIZED
--- NOTE | 2020-01-11 11:00 | NUR ---
LEFT GREAT TOE HEMATOMA, PURPLE COLORED WITH REDNESS TO TOP OF LEFT FOOT, COVERED WITH DRY DRESSING. RIGHT FOOT ULCER TO SOLE OF FOOT, COVERED WITH DRY DRESSING. PEDAL PULSES PRESENT. PT TOLERATED WITHOUT DIFFICULTY.
--- NOTE | 2020-01-11 11:56 | NUR ---
MD AT BEDSIDE TO DISCUSS RESULTS AND POC.
--- NOTE | 2020-01-11 12:50 | NUR ---
ASSISTED TO BEDSIDE COMMODE WITH STAND BY ASSIST.
[2020-01-11 13:08] LABS: URINE BILIRUBIN - DIPSTICK NEGATIVE (NEGATIVE); URINE BLOOD DIPSTICK MODERATE (NEGATIVE); URINE COLOR YELLOW; URINE GLUCOSE - DIPSTICK 500 mg/dL (NEGATIVE); URINE KETONE >=80 mg/dL (NEGATIVE); URINE LEUK ESTERASE TRACE (NEGATIVE); URINE PH 5.5 (4.5-8.0); URINE PROTEIN - DIPSTICK TRACE mg/dL (NEG-TRACE); URINE SPECIFIC GRAVITY 1.025; URINE UROBILINOGEN - DIPSTICK 0.2 E.U./dL (0.2)
[2020-01-11 13:09] LABS: URINE NITRITE - DIPSTICK POSITIVE (Negative)
[2020-01-11 13:10] LABS: URINE BACTERIA MANY hpf; URINE EPITHELIAL CELLS FEW EPI/hpf (0-FEW)
--- NOTE | 2020-01-11 13:40 | NUR ---
REPORT CALLED TO RAMOS MESSER.
--- NOTE | 2020-01-11 14:00 | NUR ---
TO ROOM 269 VIA STRETCHER, TELE MONITOR IN PLACE. BESIDE REPORT GIVEN TO RAMOS MESSER.
[2020-01-11 15:00] VITALS: BP 131/67
--- NOTE | 2020-01-11 16:00 | NUR ---
PT ARRIVES TO ROOM 269 FROM ER VIA WHEELCHAIR ACCOMPANIED BY RACIEL Walter RN. PT IS ALERT, ORIENTED X 3, NEEDY. LEFT GREAT TOE SEEN PURPLE IN ITS ENTIRETY. RIGHT FOOT HAS LARGE ROUND HOLE ON BOTTOM WITH FOUL ODOR. PT APPARENTLY UNAWARE OF THE SEVERITY OF HER CONDITION RESISTS THOUGHT OF HAVING TOE REMOVED. SANDWICH PROVIDED.
--- NOTE | 2020-01-11 16:20 | NUR ---
S: BERNA FISHER is a 49 F who presents with diabetes ulcer on right heel, gangrene of toe of left foot. She has a history of tubal ligation, cholecystectomy, appendectomy, right 3rd toe amputation . All medications in patient's chart were reviewed. O: VS: BP 131/67 mmHG, P 103 bpm, RR 22 breaths/min ,T 100.2 F W 122 kg, HT 64 in, Scr= 0.7 ,CrCl= 122.5 ml/min A: Blood culture is pending. Urine culture <is pending/show> which is sensitive to <>. P: Patient is on Vancomycin IV. Vancomycin ordered for pharmacy to dose. Start Vancomycin 1500 IV Q8H. Vancomycin trough is drawn before the 4th dose on 01/12/20 at 0930. Vancomycin goal trough is between 10-15 mcg/ml. Pharmacy will follow and or advise on antibiotics use as needed.
[2020-01-11 18:47] VITALS: BP 122/72
--- NOTE | 2020-01-11 20:02 | NUR ---
REPORT RECEIVED FROM ALTON MESSER. PT RESTING IN BED SUPINE; ASSESSMENT AND VITALS COMPLETE ALERT AND ORIENTED. PT STATE MILD DENIES PAIN, PROVIDED PRN TYLENOL FOR RELIEF. ONE ASSIST TO THE BSC. PTS IV SITE IS PATENT WITH NO REDNESS OR SWELLING. RIGHTSIDED FOOT WOUND HAD SOME DRAINAGE. PLACED A PAD WITH LOOSELY WRAPPED GAUZE TO ABSORB DRAINAGE.PT ENCOURAGED TO VERBALIZE CONCERNS. STATES UNDERSTANDING. SAFETY MEASURES IN PLACE. CALL LIGHT WITHIN REACH.
[2020-01-11 23:50] VITALS: BP 94/57
[2020-01-12] VITALS (10 sets, daily range): BP systolic 115–130; BP diastolic 69–84
--- NOTE | 2020-01-12 00:42 | NUR ---
PT SEEN AT REST IN THE BED, NO EVIDENCE OF DISTRESS. PT HAS #20 RFA RUNNING NS @ 75. SITE IS PATENT WITH NO REDNESS OR SWELLING. CALL KHAN WITHIN REACH. WILL CONTINUE TO MONITOR.
--- NOTE | 2020-01-12 04:05 | NUR ---
PT SLEEPING, NO S/O DISTRESS NOTED. CALL LIGHT IS W/IN REACH.
[2020-01-12 04:55] LABS: HEMATOCRIT 35.9 % (37.0-47.0); HEMOGLOBIN 11.3 g/dl (12.0-16.0); IMMATURE GRANULOCYTES 0.8 % (0.0-5.0); MEAN CELL VOLUME 86.5 fL CALC (80.0-100.0); MEAN CORPUSCULAR HGB 27.2 pG CALC (26.0-32.0); MEAN CORPUSCULAR HGB CONC 31.5 g/dL CAL (32.0-36.0); NEUT# 12.35 thou/uL (2.00-7.15); RED BLOOD COUNT 4.15 mill/uL (4.20-5.60); RED CELL DISTRI WIDTH 12.6 % (11.5-15.5)
[2020-01-12 05:07] LABS: ALKALINE PHOSPHATASE 122 u/l (38-126); BILIRUBIN, TOTAL 1.3 mg/dL (0.0-1.4); BUN 12 mg/dL (7-17); BUN/CREATININE RATIO 18 (12-20 (CALC)); CHLORIDE 102 mmol/l (95-108); CREATININE 0.7 mg/dL (0.5-1.0); GFR > 60 ML/MIN (>=60 (CALC)); GFR FOR AFR.AMER. > 60 ML/MIN (>=60 (CALC)); MAGNESIUM 1.6 mg/dL (1.6-2.3); POTASSIUM 3.7 mmol/l (3.5-5.1); SGOT/AST 29 u/l (14-36); SODIUM 133 mmol/l (137-146); TOTAL PROTEIN 5.7 g/dL (6.3-8.2)
[2020-01-12 05:15] LABS: ALBUMIN 2.8 g/dL (3.2-5.0); ANION GAP 17 (6-22 (CALC)); CARBON DIOXIDE 18 mmol/l (22-30)
--- NOTE | 2020-01-12 08:00 | NUR ---
PT. IS A&O X3. ABLE TO VOICE NEEDS. FOR [facility] THIS AM. DRESSING DRY AND INTACT TO RIGHT HEEL ULCER. PT. TO GO FOR SURGICAL TREATMENT OF LEFT GANGRENOUS LEFT GREAT TOE TODAY. AFEBRILE AT PRESENT. WILL MONITOR.
--- NOTE | 2020-01-12 08:15 | NUR ---
PT. A&OX3. ABLE TO VOICE NEEDS PT. TO GO TODAY FOR SURGICAL TREATMENT OF GANGRENOUS L GREAT TOE. DRESSING ON RIGHT HEEL DEEP TISSUE WOUND INTACT AND DRY. FOR VANCO TROUGH TODAY. WILL MONITOR.
--- NOTE | 2020-01-12 10:00 | NUR ---
CALLED WOUND VAC IN FOR THIS PT SPOKE TO NICE . WOUND VAC NUMBER [id number] WAS GIVEN A CONFIRMATION NUMBER [id number].
--- NOTE | 2020-01-12 12:00 | NUR ---
PT. A&O X3. UP TO BSC WITH ASSIST FOR BOWEL MOVEMENT. WILL MONITOR. NO CONCERNS VOICED.
--- NOTE | 2020-01-12 15:09 | NUR ---
PT IS A 49 YOF WHO PRESENTS WITH DECUBITUS ULCER, GANGRENE OF TOE OF LEFT FOOT. VANCOMYCIN IS ORDERED FOR PHARMACY TO DOSE. PT IS ALSO RECEIVING ZOSYN 4.5G IV Q6H. T = 97.2 f, WBC = 15.6 THOUS/UL, SCR = 0.7 MG/DL, CRCL = 122.5 ML/MIN PT HAD BEEN RECEIVING VANCOMYCIN 1500MG IV Q8H SINCE 01/10 @ 1000. TROUGH THIS AM @ 1030 = 13 MCG/ML. CONTINUE AT THIS DOSE AND WILL RE-CHECK TROUGH TOMORROW AM @ 0930. GOAL TROUGH IS 10-15 MCG/ML. PHARMACY WILL CONTINUE TO FOLLOW AND ADVISE NEEDED.
--- NOTE | 2020-01-12 16:35 | NUR ---
WOUND VAC TO RIGHT HEEL WOUND AFTER SURGERY. LEFT GREAT TOE AMPUTATED AND DRY STERILE DRESSING INTACT. MEDICATED PRN FOR PAIN WITH GOOD RESULTS. WILL MONITOR.
--- NOTE | 2020-01-12 21:30 | NUR ---
PHYSICAL ASSESMENT COMPLETE. RLE WOUND VAC FUNCTIONING WNL. LLE POST-OP DRESSING C/D/I. EXTENSIVE DIABETIC TEACHING PROVIDED, PT SEEMS DISINTERESTED. WILL NEED RE-ENFORCEMENT. PT REQUESTING JUICE, OFFERED PT DIET SODA. PT AGREES. DENIES FURTHER NEEDS. CALL KHAN WITHIN REACH, AGREES TO CALL PRN.
--- NOTE | 2020-01-12 23:05 | NUR ---
PT APPEARS TO BE SLEEPING COMFORTABLY. RESPIRATIONS REGUAL AND UNLABORED. NO APPARENT DISTRESS. CALL KHAN REMAINS WITHIN REACH.
[2020-01-13] VITALS: BP 129/79
--- NOTE | 2020-01-13 00:03 | NUR ---
SCHEDULED ANTIBIOTIC AND PRN MORPHINE AND ZOFRAN ADMINISTERED PER PTS REQUEST. SEE E-MAR. PT ASSISTED UP TO BSC AND BACK TO BED USING +2 STAFF ASSIST AND FWW. EMPTIED 300ML CLEAR YELLOW URINE FROM COMMODE. ASSISTED PT TO POSITION IN BED FOR COMFORT. REQUESTING NON-DIET SODA OR JUICE. RE-EDUCATED PT REGARDING DIABETES AND SUGARY DRINKS. OFFERED DIET SODA, PT DECLINES, STATES "THAT STUFFS NASTY", FRESH WATER PROVIDED. PT DENIES FURTHER NEEDS. CALL KHAN WITHIN REACH, AGREES TO CALL PRN.
[2020-01-13 04:00] VITALS: BP 137/77
--- NOTE | 2020-01-13 04:31 | NUR ---
SIDING MECHANIC CARMEN AT BEDSIDE TO DRAW AM LABS.
[2020-01-13 05:26] LABS: HEMATOCRIT 34.8 % (37.0-47.0); HEMOGLOBIN 11.3 g/dl (12.0-16.0); IMMATURE GRANULOCYTES 0.6 % (0.0-5.0); MEAN CELL VOLUME 84.9 fL CALC (80.0-100.0); MEAN CORPUSCULAR HGB 27.6 pG CALC (26.0-32.0); MEAN CORPUSCULAR HGB CONC 32.5 g/dL CAL (32.0-36.0); NEUT# 9.27 thou/uL (2.00-7.15); RED BLOOD COUNT 4.1 mill/uL (4.20-5.60); RED CELL DISTRI WIDTH 12.6 % (11.5-15.5)
--- NOTE | 2020-01-13 05:27 | NUR ---
PRN ANALGESIC AND ANTIEMETIC ADMINISTERED PER PTS REQUEST, SEE E-MAR. PT DENIES FURTHER NEEDS. CALL KHAN WITHIN REACH, AGREES TO CALL PRN.
[2020-01-13 05:45] LABS: ALBUMIN 2.8 g/dL (3.2-5.0); ALKALINE PHOSPHATASE 160 u/l (38-126); ANION GAP 13 (6-22 (CALC)); BILIRUBIN, TOTAL 0.9 mg/dL (0.0-1.4); BUN 8 mg/dL (7-17); BUN/CREATININE RATIO 13 (12-20 (CALC)); CHLORIDE 103 mmol/l (95-108); CREATININE 0.6 mg/dL (0.5-1.0); GFR > 60 ML/MIN (>=60 (CALC)); GFR FOR AFR.AMER. > 60 ML/MIN (>=60 (CALC)); POTASSIUM 3.4 mmol/l (3.5-5.1); SGOT/AST 32 u/l (14-36); SODIUM 135 mmol/l (137-146); TOTAL PROTEIN 5.7 g/dL (6.3-8.2)
[2020-01-13 06:02] LABS: CARBON DIOXIDE 22 mmol/l (22-30)
--- NOTE | 2020-01-13 08:00 | NUR ---
ASSISTED PT TO BSC WITH A WALKER . STEADY GAIT OBSERVED. PT DENIES ANY PAIN RELATING TO HER FOOT, STATES SHE HAS PAIN IN LT RIB/BREAST AFTER A FALL. WOUND VAC TO RT FOOT IN PLACE SUCTIONING AT 125 MM HG WITH MINIMAL DRAINAGE NOTED IN COLLECTION CHAMBER. PT INSTRUCTED TO CALL WHEN SHE IS DONE USING THE BSC. PT VERBALIZED UNDERSTANDING
--- NOTE | 2020-01-13 08:23 | NUR ---
prelim blood cx results show gram positive cocci in 2 sets all bottles. results called to cecilia pt is currently on vancomycin. no changes at this time. will follow up with final
--- NOTE | 2020-01-13 08:36 | NUR ---
DR BECERRIL AND TIAN AT BEDSIDE DISCUSSING POC
[2020-01-13 09:32] VITALS: BP 121/70
--- NOTE | 2020-01-13 09:32 | NUR ---
PT SITTING IN BED. A&O X3. NO DISTRESS NOTED. DRESSING TO LT FOOT CDI, NO ORDERS FOR DRESSING CHANGE AT THIS TIME. BILATERAL FOOT EDEMA NOTED. PT WANTING TO GO HOME. STATES SHE CAN NOT "BE HERE TOO MANY DAYS". EXPLAINED TO PT IMPORTANCE OF TREATMENT AND TREATMENT PLAN. PT VERBALIZED UNDERSTANDING. ASSESSMENT COMPLETED. DISCUSSED POC. CALL LIGHT IN REACH. CONTINUE TO MONITOR.
--- NOTE | 2020-01-13 09:38 | NUR ---
LANI AT BEDSIDE COMPLETING VENIPUNCTURE FOR ANKIT
--- NOTE | 2020-01-13 10:23 | NUR ---
VANCO TROUGH 19. PER RAVI IN PHARMACY, STOP VANCO NEW ORDERS TO BE PROFILED FOR A DIFFERENT DOSAGE. VANCO STOPPED.
--- NOTE | 2020-01-13 11:47 | NUR ---
S: BERNA FISHER is a 49 F who presents with decubitus ulcer and gangrene of left foot toe. She has a history of T2DM, hypertension, and arthritis. All medications in patient's chart were reviewed O: VS: BP 181/70 mmHg, P 70 bpm, RR 18 breaths per minute, T 97.1 F W 121.99 kg, HT 64 in, Scr= 0.6 mg/dL, CrCl= 142.9 ml/min Vancomycin trough= 19 A: The preliminary blood culture shows gram positive cocci in both sets. The final urine ulture shows ESBL K.pneumoniae sensitive to Zosyn. The final foot culture shows gram positive cocci in pairs and Serratia rubidaea sensitive to Zosyn.(right foot) Vancomcyin trough is supratherapeutic. Decrease in dose warranted. P: Patient is on Zosyn 4.5 g IV q6h and vancomycin 1500 mg IV q8h. Vancomycin ordered for pharmacy to dose. Decrease Vancomycin to 1 g IV Q8H. Vancomycin trough is drawn before the 4th dose on 01/14/20 at 1200. Vancomycin goal trough is between 10-15 mcg/ml. Pharmacy will follow and or advise on antibiotics use as needed.
--- NOTE | 2020-01-13 13:33 | NUR ---
PT SITTING IN BED, NO NEEDS AT THIS TIME. CALL LIGHT IN REACH. CONTINUE TO MONITOR.
--- NOTE | 2020-01-13 14:25 | NUR ---
PHYSICAL THERAPY AT BEDSIDE
--- NOTE | 2020-01-13 14:58 | NUR ---
PT REQUESTING TO HAVE #22 LH REMOVED DUE TO "PAIN" NO SIGNS OF INFILTRATION. #20 RAC PATENT, REDRESSED AND IV FLUIDS CONTINUED
[2020-01-13 15:39] VITALS: BP 132/80
--- NOTE | 2020-01-13 16:30 | NUR ---
pt was sitting bedside upon entering room. She agreed to physical therapy and performed LAQ 2x10, HS curls with manual resistance 2x10, seated hip abduction with manual resistance 2x10, hip adduction pillow squeeze 2x10, ankle PF with manual resistance 2x10, ankle DF with manual resistance 2x10, Then stood at RW to perform weight shifting ant/post and laterally for 3mins. Then performed marching in place for 3mins. CGA during standing activities. Pt is a good candidate for rehab indicated by [facility] score of 12.
[2020-01-13 19:00] VITALS: BP 137/84
--- NOTE | 2020-01-13 19:00 | NUR ---
REPORT RECEIVED FROM Hemanth WEBER RN, CARE OF PT ASSUMED AT THIS TIME.
--- NOTE | 2020-01-13 19:30 | NUR ---
IV site discontinued, cath intact. No edema , no redness, voices no discomfort. Peripheral IV started. IV access obtained with #20 AutoGuard at Right Forearm with 2 IV stick attempts. Flushes easily with good blood return.
--- NOTE | 2020-01-13 20:50 | NUR ---
PHYSICAL ASSESMENT COMPLETE. PT CURRENTLY DENIES PAIN OR DISCOMFORT. SEE E-MAR FOR ADMINISTRATION OF SCHEDULED AND PRN MEDICATIONS. PT DENIES ANY NEEDS AT THIS TIME. PLAN OF CARE REVIEWED, PT DENIES QUESTIONS, VERBALIZES UNDERSTANDING. ITEMS WITHIN REACH, BED LOCKED IN LOW POSITION W/ BEDRAILS UP X2. CALL KHAN WITHIN REACH, AGREES TO CALL PRN.
[2020-01-14] VITALS: BP 131/80
--- NOTE | 2020-01-14 00:50 | NUR ---
PT APPEARS TO BE SLEEPING COMFORTABLY, NO APPARENT DISTRESS, RESPIRATIONS REGULAR AND UNLABORED. ITEMS REMAIN WITHIN REACH, BED REMAINS LOCKED IN LOW POSITION W/ BEDRAILS UP X2. CALL KHAN REMAINS WITHIN REACH.
[2020-01-14 04:00] VITALS: BP 124/72
--- NOTE | 2020-01-14 05:55 | NUR ---
ASSESMENT UNCHANGED FROM BEGINING OF SHIFT BASELINE ASSESMENT. AM HEMODYNAMICS WITHIN BASELINE.PT AFEBRILE. PT DENIES NEEDS AT THIS TIME. ITEMS REMAIN WITHIN REACH, BED REMAINS LOCKED IN LOW POSITION W/ BEDRAILS UP X2.CALL KHAN REMAINS WITHIN REACH, AGREES TO CALL PRN.
[2020-01-14 06:39] LABS: HEMATOCRIT 33.5 % (37.0-47.0); HEMOGLOBIN 10.7 g/dl (12.0-16.0); MEAN CELL VOLUME 86.1 fL CALC (80.0-100.0); MEAN CORPUSCULAR HGB 27.5 pG CALC (26.0-32.0); MEAN CORPUSCULAR HGB CONC 31.9 g/dL CAL (32.0-36.0); RED BLOOD COUNT 3.89 mill/uL (4.20-5.60); RED CELL DISTRI WIDTH 12.8 % (11.5-15.5)
[2020-01-14 06:59] LABS: ANION GAP 10 (6-22 (CALC)); BUN 9 mg/dL (7-17); BUN/CREATININE RATIO 13 (12-20 (CALC)); CARBON DIOXIDE 25 mmol/l (22-30); CHLORIDE 105 mmol/l (95-108); CREATININE 0.7 mg/dL (0.5-1.0); GFR > 60 ML/MIN (>=60 (CALC)); GFR FOR AFR.AMER. > 60 ML/MIN (>=60 (CALC)); MAGNESIUM 1.7 mg/dL (1.6-2.3); POTASSIUM 3.1 mmol/l (3.5-5.1); SODIUM 136 mmol/l (137-146)
[2020-01-14 08:10] VITALS: BP 154/86
--- NOTE | 2020-01-14 08:11 | NUR ---
ASSESSMENT IS COMPLETED: IV SITE IS FREE FROM REDNESS OR EDEMA. HR IS REG, PULSES ARE STRONG X4, ABD IS SOFT WITH ACTIVE BS. BREATH SOUNDS ARE CLEAR, BILATERALLY, TELE MONITOR IN PLACE. WOUND VAC ON LEFT FOOT IS CDI. DRESSING ON R FOOT IS CDI.
--- NOTE | 2020-01-14 08:50 | NUR ---
DR JAMES IN TO VISIT WITH PT. REMOVED THE DRESSING ON R FOOT. REPLACED WITH ABD PAD WRAPPED WITH SYEDA AND JONATAN WRAP. PT TOLERATED WELL. USING CLEAN TECHNIQUE. WAS INFORMED BY DR JAMES WAITING ON THE CULTURE REPORT TO GIVE THE PROPER ABT BEFORE DISCHARGING. VERBALIZED UNDERSTANDING.
--- NOTE | 2020-01-14 10:56 | NUR ---
WOUND VAC CHANGED. USING CLEAN TECHNIQUE., PT TOLERATED WELL NO DRAINAGE NOTED IN THE CANISTER
[2020-01-14 12:00] VITALS: BP 145/87
--- NOTE | 2020-01-14 12:30 | NUR ---
PT IS RELAXING IN BED WITH NO DISTERSS NOTED. IV SITE IS FREE FROM REDNESS OR EDEMA.
--- NOTE | 2020-01-14 13:59 | NUR ---
S: BERNA FISHER is a 49 F who presents with decubitus ulcer and gangrene of toe of left foot. She has a history of type 2 diabetes, intellectual impairment, hypertension, and arthritis. All medications in patient's chart were reviewed. O: VS: BP 145/87 mmHg, P 77 bpm, RR 18 breaths per minute, T 96.6 F W 121.988 kg, HT162.56 cm, Scr= 0.7 mg/dL, CrCl= 122.5 mL/min Vancomycin trough 17 ug/mL A: Blood culture shows MRSA which is sensitive to vancomycin. Urine culture shows Klebsiella pneumoniae which is sensitive to zosyn. Wound culture shows Serratia rubidaea which is sensitive to zosyn. P: Patient is on Zosyn 4.5g IV Q6H. Vancomycin ordered for pharmacy to dose. Continue Vancomycin 1g IV Q8H. Vancomycin trough is drawn before the 4th dose on 01/14 1200. Vancomycin goal trough is between 15-20 mcg/ml. Pharmacy will follow and or advise on antibiotics use as needed.
--- NOTE | 2020-01-14 15:05 | NUR ---
PT.NOTE Miss Rush was supine as entered room. Patient had agreed to participate in therapy session which consisted of supine hip abduction x 15, supine heel slides x 15, seated long arc quads x 15, seated hip adduction x 15 w/ 5 second holds, seated hip abduction x 15 w/ 5 second holds. All bilaterally done. Pt. bed mobility from supine>sit(MAX A), seated position to supine (MOD A) w/ lower extremities to clear bed side. Call urbano and tray table by pt. side as exited room. [facility] 6 score 12
--- NOTE | 2020-01-14 15:40 | NUR ---
PT IS WEEPING AND WANTING TO GO HOME. TIRED OF BEING IN THE HOSPITAL
--- NOTE | 2020-01-14 16:12 | NUR ---
PT SPOKE WITH ANGELES POPE: MEDICATIONS AND NEEDING A PICC LINE. IV SITE IS FREE FROM REDNESS OR EDEMA.
[2020-01-14 17:35] VITALS: BP 143/84
[2020-01-14 19:00] VITALS: BP 122/81
--- NOTE | 2020-01-14 19:00 | NUR ---
REPORT RECEIVED FROM Hemanth JOHNSON LPN, CARE OF PT ASSUMED AT THIS TIME.
--- NOTE | 2020-01-14 21:00 | NUR ---
PHYSICAL ASSESMENT COMPLETE. PT CURRENTLY DENIES PAIN OR DISCOMFORT. SCHEDULED MEDICATIONS AND PRN MEDICATION ADMINISTERED, SEE E-MAR. PT DENIES ANY NEEDS AT THIS TIME. PLAN OF CARE REVIEWED, PT DENIES QUESTIONS, VERBALIZES UNDERSTANDING. ITEMS WITHIN REACH, BED LOCKED IN LOW POSITION W/ BEDRAILS UP X2. CALL KHAN WITHIN REACH, AGREES TO CALL PRN.
[2020-01-15] VITALS: BP 130/78
--- NOTE | 2020-01-15 | NUR ---
PT RESTING IN BED, NO COMPLAINTS REPORTED. VSS
[2020-01-15 04:00] VITALS: BP 108/71
[2020-01-15 07:20] VITALS: BP 150/88
--- NOTE | 2020-01-15 08:00 | NUR ---
PT IS SITTING IN THE CHAIR. PT IS A&O X3 PT DENIES PAIN AT THIS TIME. TELE IN PLACE. DRESSING IN PLACE IN LEFT FOOT. WOUND VAC IN PLACE IN RIGHT FOOT . IVF INFUSING WELL. PT DENIES ANY NEEDS AT THIS TIME. CALL LIGHT IN REACH.
--- NOTE | 2020-01-15 11:41 | NUR ---
ASSISTED PT TO THE BED FROM CHAIR. CHANGE PT LEFT LEG DRESSING MODERATED OLD BLOOD NOTED. PT TOLERATED WELL. PT DENIES ANY NEEDS AT THIS TIME. CALL LIGHT IN REACH.
[2020-01-15 12:06] VITALS: BP 159/92
--- NOTE | 2020-01-15 14:55 | NUR ---
VANCOMYCIN TROUGH IS 14 WE WILL CONTINUE ON VANCOMYCIN 1 GRAM Q8H. THE NEXT TROUGH WILL BE 01/17/20 BEFORE THE 1230 DOSE IS DUE
[2020-01-15 15:20] VITALS: BP 154/95
--- NOTE | 2020-01-15 16:06 | NUR ---
PT IS RESTING IN BED WITH NO S/S OF DISTRESS NOTED. PT DENIES ANY NEEDS AT THIS TIME. CALL LIGHT IN REACH.
[2020-01-15 19:00] VITALS: BP 157/91
--- NOTE | 2020-01-15 20:00 | NUR ---
PT COMPLAINED OF 6/10 PAIN TO LEFT SIDE, PRN IV MORPHINE GIVEN WITH GOOD EFFECT. WOUND VAC ON AND FUNCTIONING.
[2020-01-16] VITALS: BP 152/82
[2020-01-16 04:00] VITALS: BP 156/90
[2020-01-16 07:33] VITALS: BP 152/87
--- NOTE | 2020-01-16 08:05 | NUR ---
ASSESSMENT DONE. PT IS RESTING IN BED. P DENIES PAIN AT THIS TIME. TELE IN PLACE. LEFT FOOT WOUND VAC IN PLACE AT 125MMHG SUCTION. RIGHT FOOT DRESSING CDI. PT DENIES ANY NEEDS AT THIS TIME. CALL LIGHT IN REACH.
[2020-01-16 11:42] VITALS: BP 157/89
--- NOTE | 2020-01-16 12:23 | NUR ---
PT IS SITTING IN RECLINER. PT STATED PAIN LEFT BACK AND LEGS. MEDICATED PT WITH TYLENOL. PT DENIES ANY OTHER NEEDS AT THIS TIME. CALL LIGHT IN REACH.
[2020-01-16 15:42] VITALS: BP 136/81
--- NOTE | 2020-01-16 16:05 | NUR ---
PT IS SITTING IN THE RECLINER WITH NO S/S OF DISTRESS. PO FLUIDS PROVIDED. WOUND VAC IN PLACE. PT DENIES NEEDS . CALL LIGHT IN REACH.
[2020-01-16 19:00] VITALS: BP 162/88
--- NOTE | 2020-01-16 20:00 | NUR ---
PT IS RESTING IN BED, WOUND VAC RUNNING WITH NO ISSUES, IV VANCO ADMINISTRATED FS AT 1999 WAS 267, C/O 5/10 PAIN TO LEFT SIDE IV MORPHING GIVEN WITH GOOD EFFECT, PT SLEEPING.
[2020-01-17] VITALS: BP 136/77
--- NOTE | 2020-01-17 01:06 | NUR ---
PT SLEEPING IN ROOM, NO C/O PAIN OR DISCOMFORT NOTED.
[2020-01-17 04:00] VITALS: BP 141/80
--- NOTE | 2020-01-17 06:36 | NUR ---
PT IN BED RESTING WITH NO S/S OF DISTRESS, WOUND VAC IS FUNCTIONING.
[2020-01-17 07:30] VITALS: BP 162/91
--- NOTE | 2020-01-17 07:45 | NUR ---
REPORT RECEIVED FROM NILDA POTTER. PT RESTING IN BED SEMI FOWLERS; ALERT AND OREINTED. DENIES PAIN CURRENTLY. RESPIRATIONS EVEN AND UNLABORED ON ROOM AIR; RALES TO RIGHT LUNG BASE. WOUND VAC TO RIGHT FOOT AT 125 MMGH; DRY DRESSING WITH JONATAN WRAP TO LEFT FOOT CDI. LEGS ELEVATED ON PILLOWS. TELE ON. PT ON CONTACT PRECAUTIONS FOR MRSA IN BLOOD; REPEAT BLOOD CULTURES PENDING. PLAN OF CARE REVIEWED. PT ENCOURAGED TO VERBALIZE CONCERNS. STATES UNDERSTANDING AND VERBALIZES HER DESIRE TO GO HOME. SAFETY MEASURES IN PLACE. CALL LIGHT WITHIN REACH.
--- NOTE | 2020-01-17 08:43 | NUR ---
DR. MONTIEL AT BEDSIDE TO DISCUSS POC. PT UPSET ABOUT STAYING IN HOSPITAL ANOTHER NIGHT AND STATES THAT SHE IS GOING TO LEAVE. DISCUSSED WITH PT RIGHTS TO LEAVE AMA AND ALSO RISKS OF LEAVING. PT AGREES TO STAY ONE MORE NIGHT, BUT IS AGITATED STATING, "DOCTORS JUST WANT TO KEEP YOU HERE FOR NOTHING. I DON'T WANT TO STAY HERE FOR THE REST OF MY LIFE." DR. MONTIEL EXPLAINED IN DETAIL THE INDICATIONS OF HOSPITAL STAY AND NURSE EXPLAINED AGAIN IMPORTANCE OF BLOOD CULTURE RESULTS.
[2020-01-17 10:30] VITALS: BP 162/82
--- NOTE | 2020-01-17 11:13 | NUR ---
WOUND VAC TO RIGHT FOOT REPLACED AND PHOTOTS TAKEN. WOUNC VAC SUCTION CONTINUES AT 125 MMHG. DRESSING TO LEFT FOOT ALSO CHANGED. PT TOLERATED WELL.
--- NOTE | 2020-01-17 13:03 | NUR ---
OFF UNIT VIA WHEELCHAIR FOR PICC LINE PLACEMENT. REPEAT BLOOD CULTURES ARE NEGATIVE.
[2020-01-17] MEDS ORDERED: DAPTOMYCIN350 MG IV (13:40)
--- NOTE | 2020-01-17 13:55 | NUR ---
BACK TO UNIT VIA WHEELCHAIR. NOEMI SL PICC LINE APPEARS HEALTHY; DRESSING IS CDI. PICC LINE FLUSHES WELL AND HAS GOOD BLOOD RETURN. PERIPHERAL LINE DISCONTINUED PER PT REQUEST. PT ASSISTED FROM WHEELCHAIR TO BEDSIDE CHAIR; SITTING UP TALKING ON CELL PHONE. RECONNECTED TO IV FLUIDS AND VANCOMYCIN; TROUGH WAS 17 PRIOR TO DOSE.
[2020-01-17 15:30] VITALS: BP 169/87
--- NOTE | 2020-01-17 16:18 | NUR ---
S: BERNA FISHER is a 49 F who presents with ulcer of right foot with fat layer exposed, gangrene of toe of left foot, T2DM. She has a history of T2DM, intellectual impairment, hypertension, arthritis. All medications in patient's chart were reviewed. O: VS: BP 169/87 mmHg, P 82 bmp, RR 18 breaths/min, T 97.3 F W 122 kg, HT 64 in, Scr= 0.9 mg/dL,CrCl= 37 ml/min A: Blood culture shows MRSA. P: Vancomycin ordered for pharmacy to dose. Continue Vancomycin 1000 mg IV Q8H. Vancomycin trough is drawn before the 4th dose on 01/18/20 @1200. Vancomycin goal trough is between 10-20 mcg/ml. Pharmacy will follow and or advise on antibiotics use as needed.
[2020-01-17 19:00] VITALS: BP 164/87
--- NOTE | 2020-01-17 20:25 | NUR ---
PT MEDICATED ORDERS PROVIDE AND ASSESSMENT COMPLETED AT THIS TIME. ASSISTED PT TO BSC AND BACK TO BED. 1000CC OF YELLOW CLOUDY URINE OUTPUT AT THIS TIME. PT ASKING FOR MILK/SNACK. ACCU-CHECK 252, PT MEDICATED W/30UN LEVEMIR ORDERS PROVIDE.
--- NOTE | 2020-01-17 23:50 | NUR ---
ASSISTED PT TO BSC AND BACK TO BED. PT LEFT SITTING ON SIDE OF THE BED ASKING FOR COKE. NO S/O DISTRESS NOTED.
[2020-01-18] VITALS: BP 157/77
[2020-01-18 04:00] VITALS: BP 152/83
--- NOTE | 2020-01-18 05:00 | NUR ---
PT MEDICATED W/IV ANTIBIOTIC THERAPY AND DRESSING CHANGED TO LLE. MINIMAL DRAINAGE OBSERVED TO DRESSSING.
--- NOTE | 2020-01-18 07:00 | NUR ---
REPORT RECEIVED FROM GUI MELENDEZ. PT SITTING UP ON EDGE OF BED; ALERT AND ORIENTED. DENIES PAIN. RESPIRATIONS EVEN AND UNLABORED ON ROOM AIR. DRESSINGS CDI TO BILATERAL FEET; WOUND VAC IN PLACE TO RIGHT FOOT WITH SUCTION AT 125 MMHG. PLAN OF CARE REVIEWED. PT ENCOURAGED TO VERBALIZE CONCERNS; STATES UNDERSTANDING AND SAYS SHE WANTS TO GO HOME. SAFETY MEASURES IN PLACE. CALL LIGHT WITHIN REACH.
[2020-01-18 07:13] VITALS: BP 163/86
--- NOTE | 2020-01-18 08:15 | NUR ---
LABS DRAWN FROM PICC LINE AND SENT TO LAB; PICC FLUSHED PER PROTOCOL.
[2020-01-18 08:37] LABS: HEMATOCRIT 34.2 % (37.0-47.0); HEMOGLOBIN 10.9 g/dl (12.0-16.0); IMMATURE GRANULOCYTES 1.4 % (0.0-5.0); MEAN CELL VOLUME 86.4 fL CALC (80.0-100.0); MEAN CORPUSCULAR HGB 27.5 pG CALC (26.0-32.0); MEAN CORPUSCULAR HGB CONC 31.9 g/dL CAL (32.0-36.0); NEUT# 5.72 thou/uL (2.00-7.15); RED BLOOD COUNT 3.96 mill/uL (4.20-5.60); RED CELL DISTRI WIDTH 13.1 % (11.5-15.5)
--- NOTE | 2020-01-18 08:41 | NUR ---
DR. MONTIEL AT BEDSIDE.
[2020-01-18 08:46] LABS: ANION GAP 10 (6-22 (CALC)); BUN 8 mg/dL (7-17); BUN/CREATININE RATIO 13 (12-20 (CALC)); CHLORIDE 98 mmol/l (95-108); CREATININE 0.6 mg/dL (0.5-1.0); GFR > 60 ML/MIN (>=60 (CALC)); GFR FOR AFR.AMER. > 60 ML/MIN (>=60 (CALC)); POTASSIUM 3.7 mmol/l (3.5-5.1); SODIUM 136 mmol/l (137-146)
[2020-01-18 08:50] LABS: CARBON DIOXIDE 32 mmol/l (22-30)
[2020-01-18 10:55] VITALS: BP 162/95
--- NOTE | 2020-01-18 11:00 | NUR ---
DRESSING CHANGED TO LEFT FOOT. SMALL AMOUNT OF SEROSANGUINOUS DRAINAGE TO OLD DRESSING.
[2020-01-18] MEDS ORDERED: LEVAQUIN750 M1 PO (11:36)
[2020-01-18] MEDS ORDERED: NOVOLOG MIX SC (11:36)
[2020-01-18] MEDS ORDERED: ULTRAM50 M1 PO (11:49)
--- NOTE | 2020-01-18 12:34 | NUR ---
VANCO TROUGH 21; VANCO HELD FOR NOW. PT ASSISTED TO BSC FOR VOID; PT REQUESTS THAT NURSE WIPE HER; ENCOURAGED TO DO MUCH SHE CAN FOR HERSELF; UNABLE TO COMPLETE CLEAN HERSELF. REDNESS EXCORIATION NOTED BETWEEN GLUTEAL FOLDS; PT DRIED WELL AND BARRIER CREAM APPLIED. PT STATES THAT HER WILL HELP HER AT HOME WITH HYGIENE AND SKIN PROTECTANT. PHARMACY COLLECTING MEDICATIONS FROM [facility]. PT FREQUENTLY VERBALIZING THAT SHE WANTS TO GO HOME. EXPLAINED THAT SHE NEEDS TO BE DISCHARGED SAFETY AND WITH ALL OF HER RESOURCES TO HEAL. STATES UNDERSTANDING.
--- NOTE | 2020-01-18 13:35 | NUR ---
PT GIVEN DISCHARGE INSTRUCTIONS EXPLAINED IN DETAIL WITH COPY PROVIDED. IV THERAPY SCHEDULED FOR TOMORROW AT 1:30 PM AND PT CONFIRMED THAT SHE CAN ARRIVE AT THAT TIME. KVO FLUIDS REMOVED; PICC LINE NOW HEPARIN LOCKED; DRESSING IS CDI.
--- NOTE | 2020-01-18 14:00 | NUR ---
PT USING CALL LIGHT FREQUENTLY TO ASK WHEN SHE CAN GET DRESSED AND GO HOME. ADAMENT THAT SHE IS LEAVING TODAY WEATHER SHE IS DISCHARGED OR NOT. EACH TIME PT IS UPDATED ON STATUS OF DISCHARGE INCLUDING INVOLVEMENT OF PHARMACY AND CASE MANAGMENET TO MAKE SURE SHE IS DISCHARGED SAFETY WITH THE RESOURCES THAT ARE REQUIRED FOR HER HEALING. PT REMAINS FRUSTRATED AND AGAIN CALLS TO ASK HOW MUCH LONGER. SITTING UP IN CHAIR; CALL LIGHT WITHIN REACH.
--- NOTE | 2020-01-18 15:13 | NUR ---
WOUND VAC DC'D FROM PATIENT (SERIAL #[id number]) AND WET TO DRY DRESSING APPLIED.
--- NOTE | 2020-01-18 15:45 | NUR ---
Discharge instructions given including dressing changes at home, scheduled time for iv therpay tomorrow at [facility] at 1330, and all phone numbers to schedule follow up appointments. Patient verbalizes understanding. Discharged in stable condition with bilateral feet dressings CDI via [facility]. All belongings sent with pt including all prescribed meds from [facility] pharmacy (levaquin, novolin 70/30, insulin syringes, and script for tramadol) and enough dressing supplies to do her wound care tonight at home.
== END 2020-01-18 15:45 | disposition home health service (06) | DRG 240 ==
LOC: ED 08:51 → ED-I 12:15 → ED 12:25 → MS2 12:26
PROVIDERS: Nurse Practitioner; Student in an Organized Health Care Education/Training Program; ADMIT Internal Medicine; ATTEND Internal Medicine
PROC: 0Y6N0Z9 Detachment at Left Foot, Partial 1st Ray, Open Approach (ICD-10-PCS; principal; 2020-01-12)
PROC: 0JDQ3ZZ Extraction of Right Foot Subcutaneous Tissue and Fascia, Percutaneous Approach (ICD-10-PCS; 2020-01-12)
PROC: 02HV33Z Insertion of Infusion Device into Superior Vena Cava, Percutaneous Approach (ICD-10-PCS; 2020-01-17)
PROC: B518ZZA Fluoroscopy of Superior Vena Cava, Guidance (ICD-10-PCS; 2020-01-17)
DX: E11.52 Type 2 diabetes mellitus with diabetic peripheral angiopathy with gangrene (principal); I96 Gangrene, not elsewhere classified; R78.81 Bacteremia; L97.412 Non-pressure chronic ulcer of right heel and midfoot with fat layer exposed; N39.0 Urinary tract infection, site not specified; E11.621 Type 2 diabetes mellitus with foot ulcer; E11.610 Type 2 diabetes mellitus with diabetic neuropathic arthropathy; E11.65 Type 2 diabetes mellitus with hyperglycemia; I10 Essential (primary) hypertension; F79 Unspecified intellectual disabilities; M19.90 Unspecified osteoarthritis, unspecified site; T38.3X6A Underdosing of insulin and oral hypoglycemic [antidiabetic] drugs, initial encounter; D64.9 Anemia, unspecified; E88.09 Other disorders of plasma-protein metabolism, not elsewhere classified; E63.9 Nutritional deficiency, unspecified; B96.1 Klebsiella pneumoniae [K. pneumoniae] as the cause of diseases classified elsewhere; B96.89 Other specified bacterial agents as the cause of diseases classified elsewhere; Z89.421 Acquired absence of other right toe(s); Z91.128 Patient's intentional underdosing of medication regimen for other reason; Z20.828 Contact with and (suspected) exposure to other viral communicable diseases
CPT/HCPCS: J1650; J3370; Q3014

== ENCOUNTER 2020-02-19 07:20 | Emergency (ER) | payer SELFPAY ==
[~2020-02-19] VITALS: Ht 162.6 cm; Wt 80.0 kg
[~2020-02-19 07:20] MED LIST changes: +DAPTOMYCIN350 MG IV; +LEVAQUIN750 M1 PO; +NOVOLOG MIX SC
[2020-02-19] MEDS ORDERED: ZOFRAN4 MG/TAB PO (08:22)
[2020-02-19 08:37] VITALS: BP 114/58
== END 2020-02-19 08:37 | disposition home or self-care (01) | DRG 392 ==
LOC: ED 07:20
DX: R11.0 Nausea (principal); I10 Essential (primary) hypertension; E11.621 Type 2 diabetes mellitus with foot ulcer; L97.509 Non-pressure chronic ulcer of other part of unspecified foot with unspecified severity; L08.9 Local infection of the skin and subcutaneous tissue, unspecified; Z79.4 Long term (current) use of insulin; Z89.429 Acquired absence of other toe(s), unspecified side

== ENCOUNTER 2020-02-24 17:45 | Emergency (ER) | payer SELFPAY ==
[~2020-02-24] VITALS: Ht 162.6 cm; Wt 100.0 kg
[2020-02-24 19:30] LABS: HEMATOCRIT 35.4 % (37.0-47.0); HEMOGLOBIN 11.4 g/dl (12.0-16.0); IMMATURE GRANULOCYTES 0.9 % (0.0-5.0); MEAN CORPUSCULAR HGB CONC 32.2 g/dL CAL (32.0-36.0); NEUT# 11.83 thou/uL (2.00-7.15); RED BLOOD COUNT 4.39 mill/uL (4.20-5.60); RED CELL DISTRI WIDTH 12.9 % (11.5-15.5)
[2020-02-24 19:42] LABS: URINE BLOOD DIPSTICK LARGE (NEGATIVE); URINE COLOR BROWN; URINE GLUCOSE - DIPSTICK >=1000 mg/dL (NEGATIVE); URINE KETONE NEGATIVE (NEGATIVE); URINE LEUK ESTERASE TRACE (NEGATIVE); URINE PH 6.5 (4.5-8.0); URINE PROTEIN - DIPSTICK >=300 mg/dL (NEG-TRACE); URINE SPECIFIC GRAVITY >=1.030
[2020-02-24 19:48] LABS: ALKALINE PHOSPHATASE 128 u/l (38-126); ANION GAP 12 (6-22 (CALC)); BILIRUBIN, TOTAL 0.9 mg/dL (0.0-1.4); BUN 14 mg/dL (7-17); BUN/CREATININE RATIO 16 (12-20 (CALC)); CARBON DIOXIDE 28 mmol/l (22-30); CHLORIDE 99 mmol/l (95-108); CREATININE 0.9 mg/dL (0.5-1.0); GFR > 60 ML/MIN (>=60 (CALC)); GFR FOR AFR.AMER. > 60 ML/MIN (>=60 (CALC)); POTASSIUM 3.1 mmol/l (3.5-5.1); SGOT/AST 20 u/l (14-36); SODIUM 135 mmol/l (137-146)
[2020-02-24 19:50] LABS: URINE BILIRUBIN - DIPSTICK SMALL (NEGATIVE); URINE NITRITE - DIPSTICK POSITIVE (Negative)
[2020-02-24 19:51] LABS: URINE BACTERIA MANY hpf; URINE RBC TNTC RBC/hpf (0-5); URINE SQUAMOUS EPITHELIAL CELL FEW EPI/hpf (0-FEW); URINE WBC 20-50 WBC/hpf (0-5)
[2020-02-24 19:55] LABS: ALBUMIN 3.7 g/dL (3.2-5.0); MEAN CELL VOLUME 80.6 fL CALC (80.0-100.0); TOTAL PROTEIN 7.7 g/dL (6.3-8.2)
[2020-02-24] MEDS ORDERED: CIPROFLOXACN500 MG PO (20:16)
[2020-02-24 21:13] VITALS: BP 106/59
== END 2020-02-24 21:42 | disposition left against medical advice (07) | DRG 690 ==
LOC: ED 17:45
PROVIDERS: Family Medicine
DX: N39.0 Urinary tract infection, site not specified (principal); E11.9 Type 2 diabetes mellitus without complications; I10 Essential (primary) hypertension; B96.20 Unspecified Escherichia coli [E. coli] as the cause of diseases classified elsewhere; Z79.4 Long term (current) use of insulin
CPT/HCPCS: J1956

== ENCOUNTER 2020-02-25 20:41 | Emergency (ER) | payer SELFPAY ==
[~2020-02-25] VITALS: Ht 162.6 cm; Wt 100.0 kg
[~2020-02-25 20:41] MED LIST changes: +CIPROFLOXACN500 MG PO
[2020-02-25 22:41] LABS: HEMATOCRIT 39.3 % (37.0-47.0); HEMOGLOBIN 12.6 g/dl (12.0-16.0); IMMATURE GRANULOCYTES 0.5 % (0.0-5.0); MEAN CELL VOLUME 80.5 fL CALC (80.0-100.0); MEAN CORPUSCULAR HGB 25.8 pG CALC (26.0-32.0); MEAN CORPUSCULAR HGB CONC 32.1 g/dL CAL (32.0-36.0); NEUT# 12.96 thou/uL (2.00-7.15); RED BLOOD COUNT 4.88 mill/uL (4.20-5.60)
[2020-02-25 22:42] LABS: URINE BILIRUBIN - DIPSTICK NEGATIVE (NEGATIVE); URINE BLOOD DIPSTICK LARGE (NEGATIVE); URINE COLOR YELLOW; URINE GLUCOSE - DIPSTICK >=1000 mg/dL (NEGATIVE); URINE KETONE NEGATIVE (NEGATIVE); URINE NITRITE - DIPSTICK NEGATIVE (Negative); URINE PH 5.5 (4.5-8.0); URINE PROTEIN - DIPSTICK 100 mg/dL (NEG-TRACE); URINE UROBILINOGEN - DIPSTICK 0.2 E.U./dL (0.2)
[2020-02-25 22:50] LABS: URINE LEUK ESTERASE NEGATIVE (NEGATIVE); URINE RBC >100 RBC/hpf (0-5)
[2020-02-25 22:51] LABS: URINE BACTERIA MODERATE hpf; URINE EPITHELIAL CELLS MANY EPI/hpf (0-FEW); URINE MUCUS MODERATE hpf (NONE-FEW)
[2020-02-25 22:54] LABS: ALKALINE PHOSPHATASE 145 u/l (38-126); AMYLASE 50 u/l (30-110); ANION GAP 13 (6-22 (CALC)); BILIRUBIN, TOTAL 1.1 mg/dL (0.0-1.4); BUN 15 mg/dL (7-17); BUN/CREATININE RATIO 19 (12-20 (CALC)); CARBON DIOXIDE 29 mmol/l (22-30); CHLORIDE 98 mmol/l (95-108); CREATININE 0.8 mg/dL (0.5-1.0); GFR > 60 ML/MIN (>=60 (CALC)); GFR FOR AFR.AMER. > 60 ML/MIN (>=60 (CALC)); LIPASE 31 u/l (23-300); POTASSIUM 3.4 mmol/l (3.5-5.1); SGOT/AST 17 u/l (14-36); SODIUM 137 mmol/l (137-146); TOTAL PROTEIN 8.5 g/dL (6.3-8.2)
[2020-02-25 23:06] LABS: MYOGLOBIN 20 ng/mL (0 - 62)
[2020-02-26 00:47] VITALS: BP 147/65
== END 2020-02-26 00:48 | disposition left against medical advice (07) | DRG 639 ==
LOC: ED 20:41
PROVIDERS: Emergency Medicine
DX: E11.621 Type 2 diabetes mellitus with foot ulcer (principal); L97.529 Non-pressure chronic ulcer of other part of left foot with unspecified severity; L08.9 Local infection of the skin and subcutaneous tissue, unspecified; L97.519 Non-pressure chronic ulcer of other part of right foot with unspecified severity; R11.2 Nausea with vomiting, unspecified; I10 Essential (primary) hypertension; Z79.4 Long term (current) use of insulin; Z89.412 Acquired absence of left great toe; Z91.19 Patient's noncompliance with other medical treatment and regimen
CPT/HCPCS: Q9967; S0164

== ENCOUNTER 2020-03-02 18:59 | Emergency (ER) | payer SELFPAY ==
[~2020-03-02] VITALS: Ht 162.6 cm; Wt 100.0 kg
[2020-03-02 19:58] LABS: HEMATOCRIT 36.3 % (37.0-47.0); HEMOGLOBIN 11.5 g/dl (12.0-16.0); IMMATURE GRANULOCYTES 1.8 % (0.0-5.0); MEAN CELL VOLUME 81.6 fL CALC (80.0-100.0); MEAN CORPUSCULAR HGB 25.8 pG CALC (26.0-32.0); MEAN CORPUSCULAR HGB CONC 31.7 g/dL CAL (32.0-36.0); NEUT# 22.7 thou/uL (2.00-7.15); RED BLOOD COUNT 4.45 mill/uL (4.20-5.60); RED CELL DISTRI WIDTH 13.4 % (11.5-15.5)
[2020-03-02 20:08] LABS: ALBUMIN 3.9 g/dL (3.2-5.0); ALKALINE PHOSPHATASE 116 u/l (38-126); AMYLASE 49 u/l (30-110); ANION GAP 16 (6-22 (CALC)); BUN 18 mg/dL (7-17); BUN/CREATININE RATIO 23 (12-20 (CALC)); CARBON DIOXIDE 30 mmol/l (22-30); CHLORIDE 93 mmol/l (95-108); CREATININE 0.8 mg/dL (0.5-1.0); GFR > 60 ML/MIN (>=60 (CALC)); GFR FOR AFR.AMER. > 60 ML/MIN (>=60 (CALC)); LIPASE 27 u/l (23-300); POTASSIUM 3.8 mmol/l (3.5-5.1); SGOT/AST 19 u/l (14-36); SODIUM 135 mmol/l (137-146); TOTAL PROTEIN 8.1 g/dL (6.3-8.2)
[2020-03-02 20:10] LABS: BILIRUBIN, TOTAL 1.6 mg/dL (0.0-1.4)
[2020-03-02] MEDS ORDERED: ZOFRAN4 MG/TAB PO (22:46)
[2020-03-02 23:16] VITALS: BP 102/61
== END 2020-03-02 23:16 | disposition home or self-care (01) | DRG 639 ==
LOC: ED 18:59
PROVIDERS: Family Medicine
DX: E11.65 Type 2 diabetes mellitus with hyperglycemia (principal); E11.69 Type 2 diabetes mellitus with other specified complication; S91.309A Unspecified open wound, unspecified foot, initial encounter; L08.9 Local infection of the skin and subcutaneous tissue, unspecified; I10 Essential (primary) hypertension; Z79.4 Long term (current) use of insulin

== ENCOUNTER 2020-04-30 00:39 | Inpatient (IN) | payer SELFPAY ==
[~2020-04-30] VITALS: Ht 162.6 cm; Wt 92.0 kg
--- NOTE | 2020-04-30 00:39 | NUR ---
PATIENT TO ROOM 13 VIA EMS STRETCHER. PATIENT INSISTS ON USING BATHROOM. AMBULATED WITH ASSIST TO BATHROOM.
--- NOTE | 2020-04-30 00:47 | NUR ---
PATIENT BACK TO ROOM 13 FOR BEDSIDE TRIAGE.
[2020-04-30 01:18] LABS: HEMATOCRIT 35.7 % (37.0-47.0); HEMOGLOBIN 11.4 g/dl (12.0-16.0); IMMATURE GRANULOCYTES 1.4 % (0.0-5.0); MEAN CELL VOLUME 79.7 fL CALC (80.0-100.0); MEAN CORPUSCULAR HGB 25.4 pG CALC (26.0-32.0); MEAN CORPUSCULAR HGB CONC 31.9 g/dL CAL (32.0-36.0); NEUT# 20.21 thou/uL (2.00-7.15); RED BLOOD COUNT 4.48 mill/uL (4.20-5.60); RED CELL DISTRI WIDTH 14.6 % (11.5-15.5)
[2020-04-30 01:32] LABS: ALBUMIN 3.9 g/dL (3.2-5.0); ALKALINE PHOSPHATASE 148 u/l (38-126); BILIRUBIN, TOTAL 1.6 mg/dL (0.0-1.4); BUN 22 mg/dL (7-17); BUN/CREATININE RATIO 22 (12-20 (CALC)); CHLORIDE 92 mmol/l (95-108); GFR 58 ML/MIN (>=60 (CALC)); GFR FOR AFR.AMER. > 60 ML/MIN (>=60 (CALC)); POTASSIUM 3.7 mmol/l (3.5-5.1); SGOT/AST 17 u/l (14-36); SODIUM 139 mmol/l (137-146); TOTAL PROTEIN 7.7 g/dL (6.3-8.2)
[2020-04-30 01:45] LABS: ANION GAP 30 (6-22 (CALC)); CARBON DIOXIDE 21 mmol/l (22-30)
--- NOTE | 2020-04-30 01:49 | NUR ---
PATIENT IN RADIOLOGY
--- NOTE | 2020-04-30 02:00 | NUR ---
PATIENT REFUSING SUPPLEMENTAL O2 AT THIS TIME.
--- NOTE | 2020-04-30 02:05 | NUR ---
PATIENT RETURN FROM RADIOLOGY, C/O LEG PAIN, NO S/S OF DISTRESS NOTED, RESPIRATIONS EVEN AND UNLABORED, AWAITING DIAGNOSTIC RESULTS.
--- NOTE | 2020-04-30 02:16 | NUR ---
BSG 448
[2020-04-30 02:43] LABS: URINE BLOOD DIPSTICK MODERATE (NEGATIVE); URINE COLOR YELLOW; URINE GLUCOSE - DIPSTICK >=1000 mg/dL (NEGATIVE); URINE KETONE >=80 mg/dL (NEGATIVE); URINE LEUK ESTERASE NEGATIVE (NEGATIVE); URINE NITRITE - DIPSTICK NEGATIVE (Negative); URINE PH 5.5 (4.5-8.0); URINE PROTEIN - DIPSTICK 100 mg/dL (NEG-TRACE); URINE SPECIFIC GRAVITY 1.025
[2020-04-30 02:50] LABS: URINE BILIRUBIN - DIPSTICK NEGATIVE (NEGATIVE)
[2020-04-30 02:58] LABS: URINE BACTERIA MANY hpf; URINE SQUAMOUS EPITHELIAL CELL FEW EPI/hpf (0-FEW)
--- NOTE | 2020-04-30 03:00 | NUR ---
PATIENT RESUSING SUPPLEMENTAL O2 AT THIS TIME.
--- NOTE | 2020-04-30 03:54 | NUR ---
PATIENT RESTING QUIETLY AT THIS TIME, MEDICATED FOR RIGHT LEG PAIN, NO S/S OF IDSTRES SNOTED, RESPIRATIONS EVEN AND UNLABORED AT THIS TME, PATIENT REFUSING SUPPLEMENTAL OXYGEN, AWAITING INPATIENT ROOM ASSIGNMENT.
--- NOTE | 2020-04-30 05:04 | NUR ---
hand off report given to hyun
--- NOTE | 2020-04-30 05:10 | NUR ---
RECIEVED REPORT FROM GUI ACOSTA
[2020-04-30 05:25] VITALS: BP 106/65
--- NOTE | 2020-04-30 06:00 | NUR ---
PT ARRIVED TO MED SURG ROOM 283 VIA STRETCHER. PT AMBULATED FROM STRETCHER TO BED WITH LITTLE DIFFICULTY. INTRODUCED SELF TO PT AND DISCUSSED POC. PT IS A/O X3 AND UNCOOPERATIVE WHEN ASKING QUESTIONS. RESPIRATIONS ARE EVEN AND UNLABORED ON ROOM AIR. HEART RHYTHM NORMAL. BOWEL SOUNDS ACTIVE. WHEN ASKING PT LAST BM PT STATED 04/18/20. WHEN WARP PREPARER QUESTION PT STATED " I DONT KNOW, IM COLD." #20G IN RW INFUSING WITH FLUIDS PER ORDER, SITE APPEARS HEALTHY AND PATENT. #22G EMS IN LH FLUSHED, SITE APPEARS HEALTHY AND PATENT.RADIAL PULSES STRONG. PEDAL PULSES WEAK.PT PRESENTS WITH SURGICAL WOUND FROM PAST LEFT GREAT TOE AMPUTATION. WOUND ON RIGHT BOTTOM FOOT, PT STATES SHES HAD FOR A WHILE. ABCESS/CALUS ON OUTTER SIDE OF RIGHT FOOT NOTED. PHOTOS OBTAINED OF ALL. NO DRESSING ORDERS, DRY GUAZE AND KRELEX APPLIED DUE TO DRAINING. PT COMPLAINS OF 10/10 LEG PAIN AND NAUSEA, PT TO BE MEDICATED PER EMAR. WARP PREPARER NOTIFIED OF ALLERGIES, ALLERGY BAND APPLIED. PT ORIENETED TO ROOM AND CALL LIGHT SYSTEM. BSC IN PLACE. ALL SAFETY AND ISOLATION PRECAUTIONS ARE IN PLACE. WILL CONTINUE TO MONITOR.
--- NOTE | 2020-04-30 07:25 | NUR ---
NOTIFIED BY ANN-MARIE ARRIAGA ACCUCHECK 419, PER EMAR PT NOT ON SLIDING SCALE. CALL MADE TO MD AND ORDER OBTAINED FOR SLIDING SCALE COVERAGE.
[2020-04-30 08:16] VITALS: BP 82/50
--- NOTE | 2020-04-30 08:16 | NUR ---
PT RESTING IN BED, NO SIGNS OF DISTRESS NOTED, RESP EVEN AND UNLABORED. PT ALERT AND ORIENTED X3, DISCUSSED POC, PT NEEDS REINFORCEMENT WHEN DISCUSSING MEDICATIONS AND POC. ASSISTED PT TO BATHROOM PT C/O DIZZYNESS, ASSEMBLY MACHINE OFFBEARER REMAINED WITH PT, ASSISTED PT TO RECLINER FOR BREAKFAST. VITALS OBTAINED NOTED PT HYPOTENSIVE, ENCOURAGED PT TO CALL FOR ASSISTANCE. DRESSINGS TO FEET CDI, ASSESSMENT COMPLETED CALL LIGHT IN REACH,CONTINUE TO MONITOR.
--- NOTE | 2020-04-30 10:15 | NUR ---
DISCUSSED SEPSIS SCREENING WITH VAMP WETTER AND NOTIFIED OF LOW BP, RECIEVED ORDER FOR 500ML BOLUS, DISCUSSED WITH PT, PT TOLERATED WELL WILL CONTINUE TO MONITOR BP, PT ASSISTED BACK TO BED ROM RECLINER. CALL LIGHT IN REACH, CONTINUE TO MONITOR.
[2020-04-30 10:26] VITALS: BP 95/57
--- NOTE | 2020-04-30 10:38 | NUR ---
CALLED AT [phone] REGARDING THIS PT.
--- NOTE | 2020-04-30 11:30 | NUR ---
DR. JAMES AT BEDSIDE FOR CONSULTATION, ORDER TO CHANGE DRESSING TO BLE, PT TOLERATED WELL. CALL LIGHT IN REACH, CONTINUE TO MONITOR.
--- NOTE | 2020-04-30 12:11 | NUR ---
PT RESTING IN BED NOTIFIED OF ACCUCHECK >400, NEW ORDERS IN PLACE. PT MEDICATED PER JUN. CALL LIGHT IN REACH,CONTINUE TO MONITOR.
[2020-04-30 16:00] VITALS: BP 105/70
--- NOTE | 2020-04-30 17:32 | NUR ---
PT MEDICATED PER MAR, NO SIGNS OF DISTRESS NOTED, RESP EVEN AND UNLABORED. CALL LIGHT IN REACH,CONTINUE TO MONITOR.
[2020-04-30 19:00] VITALS: BP 122/72
--- NOTE | 2020-04-30 21:00 | NUR ---
PATIENT RESTING IN BED AT THIS TIME-AWAKE ALERT AND ORIENTEDX3. PATIENT WITH FLAT AFFECT.IVF PATENT AND INFUSING VIA LEFT HAND SITE ORDERED.SALINE LOCK TO RIGHT WRIST INTACT. DRESSING TO BOTH FEET ARE INTACT AND SECURED WITH JONATAN WRAPS.ENCOURAGED PATIENT TO ELEVATE BOTH FEET UPON PILLOWS. SCDE'S INPLACE. ACCU-CHECK TONIGHT WAS 358=MEDICATED WITH 8UNITS OF HUMALOG SQ PER SLIDING SCALE COVERAGE PROTOCOL. O2 SATS AT 96 ON ROOMAIR. PATIENT IS ON ISOLATION IN NEG PRESSURE ROOMFOR POSITIVE COVID. PATIENT WITH NO SOB, COUGH, FEVER, NO LOSS OF TASTE OR SMELL. SAFETY PRECAUTIONS REINFORCED. CALL LIGHT INREACH. WILL CONT TO MONITOR.
--- NOTE | 2020-05-01 00:46 | NUR ---
PATIENT RESTING IN BED. C/O NAUSEA-MEDICATED WITH ZOFRAN 4MG IVP. ZOSYN FINISHED VIA RIGHT WRIST SITE AND VANCO HUNG ORDERED VIA RIGHT WRIST SITE. PROVIDED WITH ICE CHIPS PER PATIENT REQUEST.MAGDALENO LE ELEVATED ON PILLOWS. CALL LIGHT IN REACH.WILL CONT TO MONITOR.
[2020-05-01 04:00] VITALS: BP 163/81
--- NOTE | 2020-05-01 04:16 | NUR ---
PATIENT RESTING IN BED-CONT TO C/O NAUSEA AND SEVERE ABD PAIN. PATIENT WITH NO BM FOR SEVERAL DAYS. WAS MEDICATED WITH MOM LAST NIGHT-STATES THAT SHE IS PASSING GAS. NO BM YET. MEDICATED WITH MYLANTA 30CC AND LORTAB 5/325MG PO FOR ABD PAIN. BS-247 AT THIS TIME. PATIENT PROVIDED WITH ICE AND FRESH BOTTLE WATER. REPOSITIONED IN BED. FEET ELEVATED ON PILLOWS. TOO EARLY FOR ZOFRAN AT THIS TIME. SAFETY PRECAUTIONS REINFORCED.CALL LIGHT IN REACH.WILL CONT TO MONITOR.
[2020-05-01 05:36] LABS: HEMOGLOBIN 10.9 g/dl (12.0-16.0); IMMATURE GRANULOCYTES 1.6 % (0.0-5.0); MEAN CELL VOLUME 80.5 fL CALC (80.0-100.0); MEAN CORPUSCULAR HGB 25.1 pG CALC (26.0-32.0); MEAN CORPUSCULAR HGB CONC 31.1 g/dL CAL (32.0-36.0); NEUT# 16.46 thou/uL (2.00-7.15); RED BLOOD COUNT 4.35 mill/uL (4.20-5.60); RED CELL DISTRI WIDTH 14.8 % (11.5-15.5)
[2020-05-01 05:51] LABS: ALKALINE PHOSPHATASE 136 u/l (38-126); BILIRUBIN, TOTAL 1.2 mg/dL (0.0-1.4); BUN 22 mg/dL (7-17); BUN/CREATININE RATIO 26 (12-20 (CALC)); CHLORIDE 99 mmol/l (95-108); CREATININE 0.8 mg/dL (0.5-1.0); GFR > 60 ML/MIN (>=60 (CALC)); GFR FOR AFR.AMER. > 60 ML/MIN (>=60 (CALC)); POTASSIUM 3.2 mmol/l (3.5-5.1); SGOT/AST 16 u/l (14-36); SODIUM 138 mmol/l (137-146); TOTAL PROTEIN 6.4 g/dL (6.3-8.2)
[2020-05-01 06:08] LABS: ANION GAP 14 (6-22 (CALC)); C-REACTIVE PROTEIN > 27.0 mg/dL (0-0.9); CARBON DIOXIDE 28 mmol/l (22-30)
[2020-05-01 08:00] VITALS: BP 92/47
--- NOTE | 2020-05-01 09:21 | NUR ---
S: BERNA FISHER is a 49 F who presents with cellulitis. She has a history of arthritis, diabetes, and hypertension. All medications in patient's chart were reviewed. O: VS: BP 92/47 mmHg, P 88 bpm, RR 18 breaths/min, T 96.7 F W 91.8 kg, HT 64 in, Scr 1 mg/dl, CrCl 72 ml/min A: Blood culture is pending. Urine culture is pending. Wound culture is pending. P: Patient is on Zosyn 3.375 g IV Q6H. Vancomycin ordered for pharmacy to dose. Start Vancomycin 1250 mg IV Q12H. Vancomycin trough is drawn before the 4th dose on 05/01/20 @1130. Vancomycin goal trough is between 10-15 mcg/ml. Pharmacy will follow and or advise on antibiotics use as needed.
--- NOTE | 2020-05-01 09:27 | NUR ---
PT SEEN AWAKE, ALERT, ORIENTED X 3. LUNGS CLEAR BUT DIMINISHED, RA. PT COMPLAINS OF PAIN TO ABDOMEN, PROVIDED ZOFRAN FOR SAME. SHE IS NOT WANTING TO TAKE HER MEDS, BUT HAS TAKEN SOME AND CUP WITH POTASSIUM HALVES ON BEDSIDE TABLE. PT ASKS FOR JUICES AND OTHER THINGS THAT ARE NOT GOOD FOR DIABETICS.
--- NOTE | 2020-05-01 11:57 | NUR ---
PT DID HAVE BM THIS MORNING ON BSC. NO CHANGE IN STATUS, RESTS IN THE BED IN NO ACUTE DISTRESS.
[2020-05-01 14:50] VITALS: BP 136/75
--- NOTE | 2020-05-01 17:02 | NUR ---
DRESSING CHANGED TO BILATERAL FOOT. LEFT FOOT WAS SEEN TO HAVE SMALL AMOUNT OF DRAINAGE AND RIGHT HEEL HAD MODERATE AMOUNT OF DRAINAGE. PT TOLERATED WELL.
[2020-05-01 19:00] VITALS: BP 116/69
--- NOTE | 2020-05-01 20:00 | NUR ---
PATIENT RESTING IN BED AT THIS TIME-AWAKE ALERT AND ORIENTEDX3 WITH NO COMPLAINTS AT THIS TIME. PATIENT STATES THAT SHE DID HAVE BM TODAY. BOTH FEET WITH DRESSINGS INTACT AND ELLEVATED ON PILLOWS. IV SITE TO RIGHT WRIST INTACT WITH IVF PATENT AND INFUSING ORDERED. SAFETY PRECAUTIONS REINFORCED. CALL LIGHT IN REACH. WILL CONT TO MONITOR.
--- NOTE | 2020-05-01 21:08 | NUR ---
PATIENT RESTING IN EER-XLGQ-QBKEA IS 270. COVERED WITH HUMALOG 5UNITS SQ PER SLIDING SCALE COVERAGE PROTOCOL. HS SNACK PROVIDED. CALL LIGHT IN REACH. WILL CONT TO MONITOR.
--- NOTE | 2020-05-02 00:06 | NUR ---
PATIENT UP TO THE BSC TO VOID MODERATE AMT OF CARL URINE. ZOSYN HUNG ORDERED. CALL LIGHT IN REACH, WILL CONT TO MONITOR.
--- NOTE | 2020-05-02 00:59 | NUR ---
PATIENT RESTING IN BED-TOÑITO ANAYA ORDERED. PATIENT C/O SEVERE PAIN TO RLE/RIGHT FOOT-10/10 ON PAIN SCALE. MEDICATED WITH LORTAB 5/325MG PO. DRESSING TO BOTH FEET INTACT. ENCOURAGED PATIENT TO ELEVATE FEET ON PILLOWS. CALL LIGHT IN REACH.WILL CONT TO MONITOR.
[2020-05-02 04:00] VITALS: BP 132/73
--- NOTE | 2020-05-02 04:12 | NUR ---
PATIENT RESTING IN BED-EYES ARE CLOSED-RESPS ARE EVEN AND UNLABORED. IVF PATENT AND INFUSING VIA RIGHT WRIST SITE ORDERED. CALL LIGHT IN REACH. WILL CONT TO MONITOR.
[2020-05-02 05:13] LABS: BASO% 0 % (0-3); EOS% 0 % (0-8); HEMATOCRIT 30.4 % (37.0-47.0); HEMOGLOBIN 9.6 g/dl (12.0-16.0); IMMATURE GRANULOCYTES 0.9 % (0.0-5.0); LYMPH% 11 % (15-41); MEAN CELL VOLUME 81.1 fL CALC (80.0-100.0); MEAN CORPUSCULAR HGB 25.6 pG CALC (26.0-32.0); MEAN CORPUSCULAR HGB CONC 31.6 g/dL CAL (32.0-36.0); MONO% 4 % (2-13); NEUT# 13.24 thou/uL (2.00-7.15); NEUT% 83 % (42-76); PLATELET COUNT 249 thou/uL (130-400); RED BLOOD COUNT 3.75 mill/uL (4.20-5.60)
[2020-05-02 05:39] LABS: ALBUMIN 2.5 g/dL (3.2-5.0); ALKALINE PHOSPHATASE 127 u/l (38-126); ANION GAP 9 (6-22 (CALC)); BUN 16 mg/dL (7-17); BUN/CREATININE RATIO 25 (12-20 (CALC)); CARBON DIOXIDE 28 mmol/l (22-30); CHLORIDE 104 mmol/l (95-108); CREATININE 0.6 mg/dL (0.5-1.0); GFR > 60 ML/MIN (>=60 (CALC)); GFR FOR AFR.AMER. > 60 ML/MIN (>=60 (CALC)); POTASSIUM 3.2 mmol/l (3.5-5.1); SGOT/AST 13 u/l (14-36); SODIUM 137 mmol/l (137-146); TOTAL PROTEIN 5.6 g/dL (6.3-8.2)
[2020-05-02 05:55] LABS: BILIRUBIN, TOTAL 0.6 mg/dL (0.0-1.4); C-REACTIVE PROTEIN > 27.0 mg/dL (0-0.9)
[2020-05-02 08:00] VITALS: BP 139/64
--- NOTE | 2020-05-02 09:00 | NUR ---
PT IS ALERT AND ORIENTED X 3. LUNGS CLEAR BUT DIMINISHED, RA. NO DISTRESS NOTED.
[2020-05-02 12:20] VITALS: BP 143/77
[2020-05-02 16:00] VITALS: BP 159/81
--- NOTE | 2020-05-02 17:21 | NUR ---
PT SEEN BY DR CHERELLE TODD TODAY, WHO CHANGED THE DRESSING ON RIGHT FOOT. PT TOLERATED WELL.
--- NOTE | 2020-05-02 17:33 | NUR ---
PT PROVIDED PAIN MED THIS AFTERNOON FOR FOOT PAIN. NO DISTRESS OTHERWISE.
[2020-05-02 19:00] VITALS: BP 141/78
--- NOTE | 2020-05-02 19:50 | NUR ---
PATIENT RESTING IN BED AT THIS TIME-TALKING ON THE PHONE. PATIENT AWAKE ALERT AND ORIENTEDX3. PATIENT ON ISOLATION IN NEG PRESSURE ROOM FOR COVID. IV SITE TO RIGHT WRIST INTACT. PATIENT IS ON ROOM AIR WITH O2 SAT 97%. DRESSINGS TO BOTH FEET ARE INTACT-ENCOURAGED ELEVATION OF FEET. SAFETY PRECAUTIONS REINFORCED.CALL LIGHT IN REACH. WILL CONT TO MONITOR.
--- NOTE | 2020-05-02 20:22 | NUR ---
NEW IV SITE STARTED TO LEFT AC WITH GOOD BLOOD RETURN. PATIENT TO RADIOLOGY VIA WHEELCHAIR FOR CTA CHEST ORDERED.
--- NOTE | 2020-05-02 23:39 | NUR ---
PATIENT RESTING IN BED-PATIENT MEDICATED WITH ADDITIONAL 2UNITS OF HUMALOG TO EQUAL 10 UNITS TOTAL OF HUMALOG TONIGHT. BS WAS 359 AND SLIDING SCALE COVERAGE PROTOCOL WAS UPDATED. RESTING IN BED-ZOSYN INFUSING ORDERED.ENCOURAGED PATIENT TO ELEVATE BOTH FEET. ALSO INSTRUCTED PATIENT TO USE IS Q1H WHILE AWAKE IF POSSIBLE=REPS OF 10. CALL LIGHT IN REACH. WILL CONT TO MONITOR.
--- NOTE | 2020-05-03 02:00 | NUR ---
PATIENT RESTING IN BED-C/O SEVERE RIGHT LEG/FOOT PAIN. STATES 10/10 ONPAIN SCALE. MEDICATED WITH LORTAB 5/325MGP. SAFETY PRECAUTIONS REINFORCED.CALL LIGHT IN REACH. WILL CONT TO MONITOR.
[2020-05-03 04:37] VITALS: BP 140/74
[2020-05-03 06:08] LABS: HEMATOCRIT 30.7 % (37.0-47.0); HEMOGLOBIN 9.4 g/dl (12.0-16.0); MEAN CELL VOLUME 81.4 fL CALC (80.0-100.0); MEAN CORPUSCULAR HGB 24.9 pG CALC (26.0-32.0); MEAN CORPUSCULAR HGB CONC 30.6 g/dL CAL (32.0-36.0); RED BLOOD COUNT 3.77 mill/uL (4.20-5.60); RED CELL DISTRI WIDTH 15.3 % (11.5-15.5)
--- NOTE | 2020-05-03 06:15 | NUR ---
PATIENT RESTING IN BED-ENCOURAGED TO ELEVATE FEET ON PILLOWS. REFUSING TO WEAR SCD'S ORDERED. ZOSYN HUNG ORDERED. CALL LIGHT IN REACH. WILL CONT TO MONITOR.
[2020-05-03 06:43] LABS: ANION GAP 8 (6-22 (CALC)); BUN 15 mg/dL (7-17); BUN/CREATININE RATIO 25 (12-20 (CALC)); CARBON DIOXIDE 29 mmol/l (22-30); CHLORIDE 100 mmol/l (95-108); CREATININE 0.6 mg/dL (0.5-1.0); GFR > 60 ML/MIN (>=60 (CALC)); GFR FOR AFR.AMER. > 60 ML/MIN (>=60 (CALC)); MAGNESIUM 1.8 mg/dL (1.6-2.3); SODIUM 134 mmol/l (137-146)
[2020-05-03 08:00] VITALS: BP 175/94
--- NOTE | 2020-05-03 08:00 | NUR ---
ASSESSMENT IS COMPLETED: IV SITE IS FREE FROM REDNESS OR EDEMA. HR IS REG,PULSES ARE STRONG X4, ABD IS SOFT WITH ACTIV EBS. BREATH SOUNDS ARE DIMINSHED. REFUSES TO USE THE ISP. DRESSING ON BILAT FEET ARE CDI. C/O NAUSEA THIS AM. DID HAVE SOME VOMITING NOTED. MEDICATION WAS GIVEN.
--- NOTE | 2020-05-03 09:35 | NUR ---
ATTEMPTED TO CALL PT'S SISTER LEFT A VOICED MAIL TO HAVE HER CALL BACK. WILL ATTEMPT AGAIN.
[2020-05-03 10:20] VITALS: BP 148/82
--- NOTE | 2020-05-03 11:30 | NUR ---
PT C/O NAUSEA , VOMITIED A SMALL AMOUNT OF LIQUID. CONTINUE TO OSBERVE AND MONITOR.
--- NOTE | 2020-05-03 12:00 | NUR ---
PTIS RELAXING IN BED WITH NO DISTRESS NOTED. IV SITE IS FREE FROM REDNESS OR EDEMA. PT RETURNED FROM HAVING AN US COMPLTED.
--- NOTE | 2020-05-03 12:02 | NUR ---
LEFT A SECOND VOICE MAIL NO ANSWER/
--- NOTE | 2020-05-03 14:39 | NUR ---
S: BERNA FISHER is a 49 F who presents with right foot cellulitis. She has a history of hypertension, diabetes, and arthritis. All medications in patient's chart were reviewed. O: Vancomycin trough on 05/03/20: 12 ug/ml VS: BP 148/82 mmHg, P 89 bpm, RR 22 breathes/min, T 96.9 F W 92 kg, HT 64 in, Scr= 0.6 mg/dl, CrCl= 121.9 ml/min A: Wound culture showing MRSA which is sensitive to vancomycin, P. mirabilis which is sensitive to Zosyn, and K. pneumoniae which is sensitive to Zosyn. Urine culture showing E. coli which is sensitive to Zosyn. Blood cultures pending. P: Patient is on Zosyn 3.375 g IV Q6H. Vancomycin ordered for pharmacy to dose. Continue vancomycin 1250 mg IV Q12H. Vancomycin trough is to be drawn dose on 05/05/20 at 1130. Vancomycin goal trough is between 10-15 mcg/ml. Pharmacy will follow and or advise on antibiotics use as needed.
[2020-05-03 15:30] VITALS: BP 139/73
--- NOTE | 2020-05-03 16:00 | NUR ---
PT IS RELAXING IN BED WITH NO DISTRESS NOTED. IV SITE IS FREE FROM REDNESS OR EDEMA.
--- NOTE | 2020-05-03 16:16 | NUR ---
SPOKE WITH PT'S SISTER IS CONCERNED ABOUT HER COMING TO [place] WITH HER DUE TO HER HAVING ONLY 25% OF LUNG FUNCTION AND IS ON OXYGEN. PER FAMILY " IT COST A LOT OF MONEY FOR ME TO COME AND GET HER, I WILL NOT BE ABLE TO GET HER THIS WEEKEND".
--- NOTE | 2020-05-03 17:15 | NUR ---
IV SITE IN RW WAS FOUND DISLODGED CATHETER INTACT. NOR EDNESS OR EDEMA. ABLE TO USE THE LAC WITH # 20
--- NOTE | 2020-05-03 18:16 | NUR ---
REMOVED DRESSING ON BILAT FEET. CLEANED WITH BETADINE AND REPLACED WITH 4X4 AND KERLIX COVERED WITH JONATAN WRAP/. PT TOLERATED WELL.
--- NOTE | 2020-05-03 18:18 | NUR ---
ATTEMPTED TO CALL SISTER AGAIN TO EXPLAIN ABOUT PT ADMISSION. WENT TO VOICE MAIL/
[2020-05-03 19:30] VITALS: BP 127/65
--- NOTE | 2020-05-03 20:05 | NUR ---
PT ASSESSMENT COMPLETED AND SNACK PROVIDED PER REQUEST. PT STATES, "YOU NEED TO TELL THE DOCTOR TOMORROW I WANT TO GO HOME." I REASSURED THE PT THAT THE DOCTOR WOULD BE COMING TO SEE HER IN THE MORNING, SHE VERBALIZED UNDERSTANDING. NO S/O DISTRESS NOTED. CALL LIGHT AT SIDE AND PT ENCOURAGED AND REMINDED OF CALL SYSTEM USE.
[2020-05-04 00:10] VITALS: BP 128/76
--- NOTE | 2020-05-04 00:29 | NUR ---
PT C/O TAPE COMING OFF OF HER IV SITE AND ASKED FOR HELP FIXING HER COVERS. I ASSISTED HER IN STRAIGHTENING OUT HER BLANKETS AND PLACED KOBAN TO IV SITE/SITE APPEARS HEALTHY. PT WANTED MORE SECURE.
--- NOTE | 2020-05-04 03:38 | NUR ---
PT MEDICATED FOR PAIN 10/10 ON PAIN SCALE. PT IS AWAKE WATCHING TV AND EATING SNACK AT THIS TIME. CALL LIGHT W/IN REACH.
[2020-05-04 04:00] VITALS: BP 154/69
--- NOTE | 2020-05-04 05:37 | NUR ---
IV ANTIBIOTIC THERAPY ADMINISTERED AT THIS TIME. PT DENIES ANY NEEDS AT THIS TIME.
[2020-05-04 06:08] LABS: HEMOGLOBIN 10.4 g/dl (12.0-16.0); IMMATURE GRANULOCYTES 1.6 % (0.0-5.0); MEAN CELL VOLUME 81.1 fL CALC (80.0-100.0); MEAN CORPUSCULAR HGB 24.8 pG CALC (26.0-32.0); MEAN CORPUSCULAR HGB CONC 30.6 g/dL CAL (32.0-36.0); NEUT# 10.53 thou/uL (2.00-7.15); RED BLOOD COUNT 4.19 mill/uL (4.20-5.60); RED CELL DISTRI WIDTH 15.4 % (11.5-15.5)
[2020-05-04 06:45] LABS: ALBUMIN 2.6 g/dL (3.2-5.0); ALKALINE PHOSPHATASE 120 u/l (38-126); ANION GAP 9 (6-22 (CALC)); BILIRUBIN, TOTAL 0.7 mg/dL (0.0-1.4); BUN 12 mg/dL (7-17); BUN/CREATININE RATIO 21 (12-20 (CALC)); CARBON DIOXIDE 30 mmol/l (22-30); CHLORIDE 98 mmol/l (95-108); CREATININE 0.6 mg/dL (0.5-1.0); GFR > 60 ML/MIN (>=60 (CALC)); GFR FOR AFR.AMER. > 60 ML/MIN (>=60 (CALC)); SGOT/AST 15 u/l (14-36); SODIUM 134 mmol/l (137-146)
[2020-05-04 07:06] LABS: C-REACTIVE PROTEIN 14.4 mg/dL (0-0.9)
[2020-05-04 08:00] VITALS: BP 154/70
--- NOTE | 2020-05-04 08:00 | NUR ---
ASSESSMENT IS COMPLETED: IV SITE IS FREE FROM REDNESS OR EDEMA. HR IS REG,PULSES ARE STRONG X4, ABD IS SOFT WITH ACTIVE BS. BREATH SOUNDS ARE CLEAR AND DIMINISHED. DRESSING ON BOTH FEET ARE CDI.
--- NOTE | 2020-05-04 09:30 | NUR ---
pt wanted a shower, removed dressing on bilateral feet at 1000 replaced dressing with betadine and wrapped with kerlix and miguel wrap. pt tolerated well.
--- NOTE | 2020-05-04 10:30 | NUR ---
DR HERNANDEZ HAS CALLED AND INFORMED PT OF NEEDING TO HAVE IV ABT'S. AND DRESSING CHANGES.PICTURES OBTAINED. AND DR HERNANDEZ ABLE TO SEE THE PICTURES.
--- NOTE | 2020-05-04 12:00 | NUR ---
PT IS RELAXING IN BED WITH MO DISTRESS NOTED. IV SITE IS FREE FROM REDNESS OR EDEMA.
[2020-05-04] MEDS ORDERED: KEFLEX500 MG PO (13:57)
[2020-05-04] MEDS ORDERED: BACTRIM DS1 TAB PO (13:58)
--- NOTE | 2020-05-04 14:23 | NUR ---
DISCONTINUED IV SITE CATHETER INTACT. WILL NOT COMPLETE THE VANCOMYACIN WANTS A TAXI T O TAKE HER HOME
--- NOTE | 2020-05-04 16:00 | NUR ---
IV SITE DISCONTINUED CATHETER INTAC.T NOREDNESS OR EDEMA. DISCHARGE INSTRUCTIONS GIVEN TO PT AND VERBALIZED UNDERSTANDING. PT DID SIGN OUT AMA WITH . CALLED FOR A TAXI TO ANCIENT ART CURATOR PT. AND INSISTED ON STAYING DOWNSTAIRS WITH SECURITY UNTIL THEY CAME. Discharge instructions given. Patient verbalizes understanding of same. Discharged in good condition via Wheelchair to Home with *Other. All belongings sent with pt.
== END 2020-05-04 16:17 | disposition left against medical advice (07) | DRG 637 ==
LOC: ED 00:39 → ED-I 03:31 → MS2 03:49 → ED 03:49 → MS2 05-04 16:17
PROVIDERS: Family Medicine; Nurse Practitioner; Nurse Practitioner Family; ADMIT Internal Medicine; ATTEND Internal Medicine
PROC: XW033E5 Introduction of Remdesivir Anti-infective into Peripheral Vein, Percutaneous Approach, New Technology Group 5 (ICD-10-PCS; principal; 2020-04-30)
DX: E11.65 Type 2 diabetes mellitus with hyperglycemia (principal); U07.1 COVID-19; L03.115 Cellulitis of right lower limb; L97.412 Non-pressure chronic ulcer of right heel and midfoot with fat layer exposed; N39.0 Urinary tract infection, site not specified; M86.8X7 Other osteomyelitis, ankle and foot; Z16.29 Resistance to other single specified antibiotic; E11.69 Type 2 diabetes mellitus with other specified complication; I10 Essential (primary) hypertension; E11.621 Type 2 diabetes mellitus with foot ulcer; L97.529 Non-pressure chronic ulcer of other part of left foot with unspecified severity; E11.610 Type 2 diabetes mellitus with diabetic neuropathic arthropathy; F79 Unspecified intellectual disabilities; M19.90 Unspecified osteoarthritis, unspecified site; I95.9 Hypotension, unspecified; B96.20 Unspecified Escherichia coli [E. coli] as the cause of diseases classified elsewhere; B95.62 Methicillin resistant Staphylococcus aureus infection as the cause of diseases classified elsewhere; E11.51 Type 2 diabetes mellitus with diabetic peripheral angiopathy without gangrene; Z91.14 Patient's other noncompliance with medication regimen; Z89.421 Acquired absence of other right toe(s); Z89.412 Acquired absence of left great toe; Z22.39 Carrier of other specified bacterial diseases; Z79.4 Long term (current) use of insulin
CPT/HCPCS: A9579; J1650; J3370; Q9967